=== PATIENT | male | born 1980 | race Caucasian/White ===

== ENCOUNTER → 2019-10-14 09:05 | Outpatient (CLI) | payer OTHER, SELFPAY ==
--- NOTE | 2019-10-14 09:10 | XR_ITS ---
PROCEDURE: XR KNEE RT 4V CLINICAL INDICATION: Rt knee pain Right anterior knee pain COMPARISON: No exams were available for comparison FINDINGS: No fracture or dislocation. No lytic or blastic change. There is normal mineralization. The joint spaces are well-preserved. No significant degenerative/arthritic changes. No erosive changes evident. Other findings:None. IMPRESSION: No acute findings. Dictated by: Joel Christiansen MD 10/14/2019 15:12 Electronically signed by Joel Christiansen MD in [place] 10/14/2019 15:14
== END ==
PROVIDERS: Visit Provider Orthopaedic Surgery
DX: M25.561 Pain in right knee (principal)
CPT/HCPCS: 73564

== ENCOUNTER → 2022-10-11 08:52 | Outpatient (CLI) | payer OTHER, SELFPAY ==
--- NOTE | 2022-10-11 08:59 | US_ITS ---
FINAL REPORT CLINICAL HISTORY: UPPER GASTRIC pain FINDINGS: RIGHT UPPER QUADRANT ULTRASOUND Sonographic images of the right upper quadrant were obtained. The pancreas is partially obscured.The liver has an unremarkable appearance. There is a 3 mm polyp in the gallbladder wall. The common duct is within normal limits measuring 2 mm. Limited images of the right kidney are normal. IMPRESSION: Gallbladder polyp. Reviewed, Interpreted and Dictated by Gabe Bright III, MD Transcribed by Cait Winston Authenticated and [facility]
== END ==
PROVIDERS: PCP Internal Medicine Adolescent Medicine; Visit Provider Nurse Practitioner Family
DX: R10.11 Right upper quadrant pain (principal)
CPT/HCPCS: 76705

== ENCOUNTER 2022-11-05 07:26 | Emergency (ER) | payer OTHER, SELFPAY ==
--- NOTE | 2022-11-05 07:32 | ECG_ITS ---
APPROVED REPORT Exam: Resting ECG HR:61 bpm ECG Measurements Heart Rate [address] 156 P 81 QRSd 98 QRS 82 QT 393 T 81 QTc 395 Conclusion SINUS RHYTHM WITH MARKED SINUS ARRHYTHMIA BORDERLINE ECG UNCONFIRMED REPORT Electronically signed by : Thomas Meneses MD 11/07/2022 20:04:37
[2022-11-05 07:43] VITALS: BP 123/78; PULSE 60; RESP 18; TEMP 36.7; O2SAT 97; BMI 18.8
--- NOTE | 2022-11-05 07:43 | CT_ITS ---
PROCEDURE INFORMATION: Exam: CTA Head With Contrast, Arteriography Exam date and time: 11/05/2022 8:04 AM Age: 42 years old Clinical indication: Dizziness and giddiness and vertigo; Additional info: Central vertigo at rest TECHNIQUE: Imaging protocol: Computed tomographic angiography of the head with contrast. Exam focused on the arteries. 3D rendering (Not supervised by radiologist): MIP and/or 3D reconstructed images were created by the technologist. Radiation optimization: All CT scans at this facility use at least one of these dose optimization techniques: automated exposure control; mA and/or kV adjustment per patient size (includes targeted exams where dose is matched to clinical indication); or iterative reconstruction. Contrast material: ISOVUE 370; Contrast volume: 100 ml; Contrast route: INTRAVENOUS (IV); COMPARISON: CT HEAD/BRAIN WO CON 11/05/2022 8:02 AM FINDINGS: ANTERIOR CIRCULATION: Intracranial internal carotid arteries: Intracranial internal carotid arteries are without acute flow limiting stenosis. Middle cerebral arteries: M1, M2 and their distal visualized branches are without acute flow limiting stenosis. Anterior cerebral arteries: A1, A2 and their distal visualized branches are without acute flow limiting stenosis. Anterior communicating artery is unremarkable. . POSTERIOR CIRCULATION: Vertebral arteries: Intracranial vertebral arteries and their visualized branches are without acute flow limiting stenosis. Basilar artery: The basilar artery and its visualized proximal branches are without acute flow limiting stenosis. Posterior cerebral arteries: P1, P2 and their distal visualized branches are without acute flow limiting stenosis. IMPRESSION: NO acute flow-limiting stenosis or large vessel occlusion of the CENTRAL/major intracranial arteries. COMMENT: Recommend followup with MRI of brain and IAC if persistent/new/worsening symptoms or symptoms unexplained by the current study.
--- NOTE | 2022-11-05 07:43 | CT_ITS ---
PROCEDURE INFORMATION: Exam: CT Head Without Contrast Exam date and time: 11/05/2022 8:02 AM Age: 42 years old Clinical indication: Dizziness; Additional info: Central vertigo at rest TECHNIQUE: Imaging protocol: Computed tomography of the head without contrast. Radiation optimization: All CT scans at this facility use at least one of these dose optimization techniques: automated exposure control; mA and/or kV adjustment per patient size (includes targeted exams where dose is matched to clinical indication); or iterative reconstruction. COMPARISON: No relevant prior studies available. FINDINGS: Brain: Normal appearing brain parenchyma without intraparenchymal hemorrhage and normal zapata-white matter differentiation/no obvious acute ischemic stroke. No intra-or extra-axial fluid collection, no supra-or infratentorial mass, no mass effect or midline shift. Cerebral ventricles: Ventricles, sulci and basal cisterns are normal in size without hydrocephalus. Paranasal sinuses: Mild chronic mucoperiosteal thickening in the visualized paranasal sinuses. Mastoid air cells: No mastoid effusion. Bones/joints: Visualized skull bones are grossly normal. Soft tissues: Focal 1.2 cm osteoma in LEFT posterior ethmoid air cell. IMPRESSION: No evidence of an acute intracranial hemorrhage, mass lesion or obvious acute ischemic infarction.
--- NOTE | 2022-11-05 07:43 | CT_ITS ---
PROCEDURE INFORMATION: Exam: CTA Neck With Contrast Exam date and time: 11/05/2022 8:04 AM Age: 42 years old Clinical indication: Dizziness and giddiness and vertigo; Additional info: Central vertigo at rest TECHNIQUE: Imaging protocol: Computed tomographic angiography of the neck with contrast. 3D rendering (Not supervised by radiologist): MIP and/or 3D reconstructed images were created by the technologist. Radiation optimization: All CT scans at this facility use at least one of these dose optimization techniques: automated exposure control; mA and/or kV adjustment per patient size (includes targeted exams where dose is matched to clinical indication); or iterative reconstruction. Contrast material: ISOVUE 370; Contrast volume: 100 ml; Contrast route: INTRAVENOUS (IV); COMPARISON: CT HEAD/BRAIN WO CON 11/05/2022 8:02 AM FINDINGS: Thoracic Vessels: Visualized aortic arch is unremarkable. No significant narrowing of the origin of the neck vessels. . Common Carotid Arteries: Common carotid arteries are without acute flow limiting stenosis. Cervical Internal Carotid Arteries: No acute flow-limiting stenosis of the cervical internal carotid arteries. No evidence of an aneurysm or a dissection. . Vertebral Arteries: Cervical vertebral arteries are without acute flow limiting stenosis. . Other Structures: Scarring, emphysema and pleural thickening in the lung apices. Calcific LEFT hilar lymph nodes and lung granulomas. IMPRESSION: NO acute flow-limiting stenosis, no occlusion, aneurysm or dissection of the carotid and vertebral arteries in the neck. REFERENCES: NASCET CRITERIA. The degree of stenosis in the cervical segment of the internal carotid artery is based on NASCET criteria. Normal is no stenosis. Mild is less than 50% stenosis. Moderate is 50-69% stenosis. Severe is 70% to 99% stenosis. Total occlusion is no detectable patent lumen.
--- NOTE | 2022-11-05 07:43 | HMH.EDDIZZ ---
Discharge Plan Disposition Patient Disposition: Home, Self-Care Condition: Good Prescriptions Prescriptions: New meclizine 25 mg tablet 25 mg PO DAILY Qty: 30 0RF No Action mupirocin 2 % ointment 1 applic TOPICAL BID 10 Days Qty: 15 0RF sulfamethoxazole-trimethoprim [Bactrim] 400-80 mg tablet 1 tab PO BID 10 Days Qty: 20 0RF prednisone 20 MG tablet 20 mg PO BID 4 Days Qty: 8 0RF Referrals Follow up/Referrals: Thomas Meneses MD [Primary Care Provider] - See instructions Clinical Impressions Clinical Impression: Vertigo Instructions Patient Instructions: Vertigo, Meclizine Print Language Print Language: Bengali Discharge ED Provider: Srinath Mortensen HPI <Faustino Hackett MD - Last Filed: 11/05/22 07:50> General Chief Complaint: Dizziness Stated Complaint: Dizziness,lightheaded,no accident Time Seen by Provider: 11/05/22 07:38 History of Present Illness HPI Narrative: 42-year-old male presents with vertigo upon awakening stating that the room is spinning on a horizontal axis. States that it is occurring at rest and not dependent on position or including standing or leaning. He does not have a headache at this time he has vomited several times and denies double vision. No fevers chills or body aches is otherwise been well with no shortness of breath chest pain or abdominal pain. Over the last several months he has been intermittently worked up for chest pain with GI with a scope determining that he has a hiatal hernia. No medication was taken prior to arrival. Started within an hour prior to arrival here. Related Data Previous Rx's Medication Instructions Recorded mupirocin 2 % topical ointment 1 applic topical BID skin 10/02/18 infection 10 days #15 grams sulfamethoxazole 400 1 tab PO BID skin infection 10 10/02/18 mg-trimethoprim 80 mg tablet days #20 tabs (Bactrim) prednisone 20 mg tablet 20 mg PO BID 4 days #8 tabs 09/19/19 meclizine 25 mg tablet 25 mg PO DAILY #30 tabs 11/05/22 Allergies Allergy/AdvReac Type Severity Reaction Status Date / Time No Known Allergies Allergy Verified 10/14/19 09:34 PFSH <Faustino Hackett MD - Last Filed: 11/05/22 07:50> [facility] Disclaimer: The information contained in this section may have been updated after the patient was seen, as this information can be updated by other users. Social History Smoking Status: Current every day smoker tobacco type: cigarettes packs per day: 1 alcohol intake: never current occupational status: employed Travel in the last 8 weeks: None household members: family housing: house <Faustino Hackett MD - Last Filed: 11/05/22 07:50> ROS Obtained: Yes Systems reviewed as appropriate & no additional complaints except as documented Physical Exam <Faustino Hackett MD - Last Filed: 11/05/22 07:50> General General appearance: alert and in no apparent distress Head Head exam: atraumatic and normocephalic Eye Eye exam: Present PERRL, EOMI and other (With right lateral head turn patient has a very short 2 beat nystagmus to the left) ENT ENT exam: Present mucous membranes moist Neck Neck exam: Present normal inspection and trachea midline Chest Chest inspection: Present normal inspection and symmetric chest wall rise Respiratory Respiratory exam: Present normal lung sounds bilaterally; Absent respiratory distress Cardiovascular Cardiovascular exam: Present regular rate Abdominal Exam Abdominal exam: Present soft; Absent distention or tenderness Extremities Exam Extremities exam: Present normal inspection Back Exam Back exam: Present normal inspection Neurological Exam Neurological exam: Present alert, oriented X3 and CN II-XII intact; Absent motor sensory deficit Psychiatric Psychiatric exam: Present normal affect Skin Skin exam: Present warm, dry and intact Medical Decision Making <Faustino Hackett MD - Last Filed: 11/05/22 07:50> Medical Records Medical records reviewed: Yes
[2022-11-05 07:50] LABS: Basophils # 0.1 K/mm3 (0-0.2); Chloride 104 mmol/L (98-107); Eosinophils # 0.3 K/mm3 (0.0-0.4); Eosinophils % 4.3 % (0.1-12.0); Hematocrit 41.2 % (42.0-52.0); Hemoglobin 14.1 g/dL (14.1-18.0); Lymphocytes # 1.9 K/mm3 (0.7-4.5); Lymphocytes % 25.6 % (10-50); Mean Corpuscular HGB Conc 34.3 g/dL (31.8-35.4); Mean Corpuscular Hemoglobin 29.8 pg (27.0-31.2); Mean Corpuscular Volume 86.8 fl (80-94); Mean Platelet Volume 9.5 fl (7.4-10.4); Monocytes # 0.4 K/mm3 (0.1-1.0); Neutrophils # 4.8 K/mm3 (1.8-7.8); Neutrophils % 64.1 % (37.0-80.0); Platelet Count 187 K/mm3 (142-424); Red Blood Count 4.74 M/mm3 (4.60-6.20); Red Cell Distribution Width 12.6 % (11.5-17.5); White Blood Count 7.5 K/mm3 (4.8-10.8)
[2022-11-05 07:51] LABS: Potassium 3.5 mmoL/L (3.5-5.1); Sodium 140 mmol/L (136-145)
[2022-11-05 07:53] LABS: Blood Urea Nitrogen 14 mg/dl (9-20); Creatinine Clearance Estimated 74 mL/min (50-200); Estimated Glomerular Filt Rate 82 ml/min (>60); GFR (African American) 99 ML/MIN (>60)
[2022-11-05 07:54] LABS: Alanine Aminotransferase 21 U/L (12-78); Albumin Level 4.3 g/dl (3.5-5.0); Albumin/Globulin Ratio 1.6 (1.1-1.8); Alkaline Phosphatase 112 U/L (38-126); Anion Gap 11.5 mEq/L (5-15); Aspartate Amino Transferase 29 U/L (17-59); Bilirubin,Total 0.5 mg/dl (0.2-1.3); Calcium 8.8 mg/dl (8.4-10.2); Carbon Dioxide 28 mmol/L (22.0-30.0); Globulin 2.7 g/dL (1.3-3.2); Glucose 142 mg/dl (74-100)
--- NOTE | 2022-11-05 07:56 | PC.NURSE ---
Radiology taking patient to CT in wheelchair
[2022-11-05 08:11] VITALS: BP 120/74; PULSE 82; RESP 16; O2SAT 100
--- NOTE | 2022-11-05 08:11 | PC.NURSE ---
Patient back from CT
[2022-11-05 08:30] VITALS: BP 118/78; PULSE 60; RESP 16; O2SAT 98
[2022-11-05 09:00] VITALS: BP 119/74; PULSE 62; RESP 17; O2SAT 97
[2022-11-05 10:09] VITALS: BP 120/78; PULSE 61; RESP 18; TEMP 36.7; O2SAT 95
== END 2022-11-05 10:10 | disposition home or self-care (01) ==
PROVIDERS: Student in an Organized Health Care Education/Training Program; Emergency Provider Emergency Medicine; PCP Internal Medicine Adolescent Medicine
DX: R42 Dizziness and giddiness (principal); R11.10 Vomiting, unspecified; H55.00 Unspecified nystagmus; Z79.52 Long term (current) use of systemic steroids
CPT/HCPCS: 99285; 96374; 96375; 96361; 70450; 70496; 70498; 80053; 85025; 93005; Q9967

== ENCOUNTER → 2022-11-09 10:19 | Outpatient (CLI) | payer OTHER, SELFPAY ==
--- NOTE | 2022-11-09 10:23 | NM_ITS ---
FINAL REPORT CLINICAL HISTORY: ABD PAIN no stone per u/s done on 10/11/22 10:35 am 8.37 mci choletec 1.1 mcg of cck injected at 11.35am no pain during cck injection FINDINGS: HEPATOBILIARY SCAN Sequential anterior projection images of the abdomen were obtained after the intravenous injection of 8.37 mCi technetium 99m Choletec. There is normal uptake of radiotracer by the liver. The bile ducts are visualized by 10 minutes. Gallbladder activity is seen by 15 minutes. Bowel activity is noted by 30 minutes. After 1 hour, 1.1 ?g of CCK was injected intravenously for calculation of gallbladder ejection fraction. The gallbladder ejection fraction is 62 %, which is within normal limits. IMPRESSION: No evidence of cystic duct or bile duct obstruction. Normal gallbladder ejection fraction of 62 %. Reviewed, Interpreted and Dictated by Bea Cary MD Transcribed by Manuela Rivera Authenticated and [facility]
--- NOTE | 2022-11-09 10:26 | US_ITS ---
FINAL REPORT TECHNIQUE: Sonographic images of the thyroid were obtained. CLINICAL HISTORY: Feels like lump in throat since June, FINDINGS: THYROID ULTRASOUND The right thyroid gland measures 4.9 by 1.1 x 1.1 cm. The parenchyma shows normal echogenicity. No dominant mass is seen. The left thyroid gland measures 4.7 x 1.1 x 0.9 cm. The parenchyma shows normal echogenicity. No dominant mass is seen. IMPRESSION: Unremarkable thyroid evaluation Reviewed, Interpreted and Dictated by Bea Cary MD Transcribed by Manuela Rivera Authenticated and [facility]
--- NOTE | 2022-11-09 10:36 | HMH.ITSHM ---
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 []MECLIZINE
== END ==
PROVIDERS: PCP Internal Medicine Adolescent Medicine; Visit Provider Nurse Practitioner Family
DX: R10.11 Right upper quadrant pain (principal); R10.13 Epigastric pain; E01.0 Iodine-deficiency related diffuse (endemic) goiter; R07.89 Other chest pain; K44.9 Diaphragmatic hernia without obstruction or gangrene
CPT/HCPCS: 76536; 78227; A9537; J2805

== ENCOUNTER → 2022-12-20 08:40 | Outpatient (CLI) | payer OTHER, SELFPAY ==
--- NOTE | 2022-12-20 08:48 | CT_ITS ---
FINAL REPORT TECHNIQUE: Pre-and postcontrast axial imaging of the abdomen and pelvis was obtained. Oral contrast was given. This study was performed with techniques to keep radiation doses as low as reasonably achievable, (ALARA). Individualized dose reduction technique using automated exposure control or adjustment of mA and/or kV according to the patient's size were employed. CLINICAL HISTORY: EPIGASTRIC PAIN,NAUSEA FINDINGS: The lung bases are clear. The liver is homogeneous. The gallbladder is present. The spleen, adrenal glands, and pancreas are unremarkable. There is no hydronephrosis or solid renal mass. On precontrast imaging, no renal stones are identified. Abdominal GI tract is unremarkable. There is no lymphadenopathy or ascites. The prostate and bladder are unremarkable. The appendix is normal. There is long segment wall thickening of the distal colon consistent with infectious or inflammatory colitis. There is no lymphadenopathy or ascites. No acute osseous abnormalities identified. IMPRESSION: Infectious or inflammatory distal colitis. Reviewed, Interpreted and Dictated by Namrata Ulloa MD Transcribed by Cait Winston Authenticated and [facility]
[2022-12-20 10:41] LABS: Amylase 50 U/L (30-110); Lipase 67 U/L (23-300)
== END ==
PROVIDERS: PCP Internal Medicine Adolescent Medicine; Referring Provider Nurse Practitioner Family; Visit Provider Nurse Practitioner Family
DX: R10.11 Right upper quadrant pain (principal); R10.13 Epigastric pain; R11.0 Nausea; R07.89 Other chest pain; F45.8 Other somatoform disorders; R19.4 Change in bowel habit; K59.00 Constipation, unspecified; K62.5 Hemorrhage of anus and rectum
CPT/HCPCS: 36415; 74178; 82150; 83690; Q9967

== ENCOUNTER → 2023-03-15 15:14 | Outpatient (CLI) | payer OTHER, SELFPAY | PROVIDERS: PCP Internal Medicine Adolescent Medicine; Visit Provider Nurse Practitioner Family | DX: R06.09 Other forms of dyspnea (principal); R00.2 Palpitations; R07.89 Other chest pain; R42 Dizziness and giddiness | CPT/HCPCS: 93270 ==

== ENCOUNTER → 2023-03-27 14:23 | Outpatient (CLI) | payer OTHER, SELFPAY ==
--- NOTE | 2023-03-27 | CA_ITS ---
APPROVED REPORT Exam: Exercise Treadmill Technologist: Michela Bauer, Ht: 5 ft 7 in Wt: 120 lbs BSA: 1.63 m2 HR: 77 bpm BP: 115/75 mmHg Medical History Allergies: No known drug allergies Cardiac Risk Factors: FHX of CAD Stress Test Details Test: Exercise stress testing was performed using a Modified Timmy protocol. HR Resting HR: 86 bpm Max Heart Rate (APMHR): 177 bpm Max HR Achieved: 150 bpm Target HR (85% APMHR): 150 bpm % of APMHR: 85 Recovery HR: 79 bpm BP Resting BP: 120/79 mmHg Max BP: 142/80 mmHg Recovery BP: 123.0/79.0 mmHg BP response to stress: Normal blood pressure response to stress. ECG Resting ECG: NSR, Possible old inferior NE Stress ECG: Sinus tachycardia ST Change: No change Arrhythmia: None Recovery ECG: NSR, unchanged from baseline Clinical Exercise duration: 10:28 min Highest Stage Achieved: Exercise capacity: 12.8 METs Overall Exercise Capacity for Age: Good Stress ECG Conclusion EXERCISE STRESS TEST WAS STOPPED DUE TO GENERALIZED FATIGUE BASELINE ECG DEMONSTRATES NORMAL SINUS RHYTHM WITH POSSIBLE OLD INFERIOR NE. AT PEAK STRESS, THERE WERE NO ST-T WAVE CHANGES CONCLUSION: GOOD EXERCISE CAPACITY FOR AGE AND SEX. NORMAL HR AND BP RESPONSE WITH STRESS. STRESS ECG DEMONSTRATES NO ISCHEMIC FINDINGS. Test Summary REST . . . . . . . Standing REST . . . . . . . Sitting REST 06:26 0.0 0.0 86 . 120/ 79 . . Stage 1 01:00 10.0 1.7 96 . . . . Stage 1 02:00 10.0 1.7 95 . . . . Stage 1 03:00 10.0 1.7 97 . 120/ 65 . . Stage 2 01:00 12.0 2.5 101 . . . . Stage 2 02:00 12.0 2.5 103 . . . . Stage 2 03:00 12.0 2.5 110 . 130/ 78 . . Stage 3 01:00 14.0 3.4 121 . . . . Stage 3 02:00 14.0 3.4 119 . 142/ 80 . . Stage 3 03:00 14.0 3.4 128 . 142/ 80 . . Stage 4 01:00 16.0 4.2 145 . . . . Stage 4 01:28 16.0 4.2 149 . . . Stop exercise at 10:28 RECOVERY 01:00 0.0 0.0 112 . 135/ 70 . . RECOVERY 02:00 0.0 0.0 101 . 135/ 70 . . RECOVERY 03:00 0.0 0.0 87 . 135/ 70 . . RECOVERY 04:00 0.0 0.0 87 . 137/ 77 . . RECOVERY 04:39 0.0 0.0 87 . 123/ 79 . . Electronically signed by : Olga Sexton, 03/27/2023 19:12:21
== END ==
LOC: RT 14:24
PROVIDERS: PCP Internal Medicine Adolescent Medicine; Visit Provider Nurse Practitioner Family
DX: R06.09 Other forms of dyspnea (principal); R07.89 Other chest pain; R00.2 Palpitations; R42 Dizziness and giddiness
CPT/HCPCS: 93017; 93306

== ENCOUNTER 2023-04-26 08:43 | Day surgery (SDC) | payer OTHER, SELFPAY ==
[2023-04-26] VITALS (13 sets, daily range): BP systolic 80–112; BP diastolic 49–71; PULSE 45–77; RESP 17–18; O2SAT 95–100; BMI 18.6
--- NOTE | 2023-04-26 07:12 | IR_ITS ---
APPROVED REPORT Patient Location: Outpatient Field Nurse: JEREMIE Oropeza RT (R) PROCEDURES Left heart catheterization Left ventriculogram Selective coronary angiogram INDICATION Cardiomyopathy ejection fraction 40%, Unable to complete exercise stress test Informed consent was obtained prior to the procedure. COMPLICATIONS None Estimated Blood Loss: Less than 10 mls TECHNIQUE One percent lidocaine was used to anesthetize the right groin. The right femoral artery was accessed via the Seldinger technique. A 4-Tuvaluan sheath was placed in the right femoral artery. The JL-4 and JR-4 catheter was also used to perform left heart catheterization left ventriculogram and selective coronary angiogram. At the end of the procedure the patient was transferred to the post-op holding area in stable condition for arterial sheath removal. ANGIOGRAPHIC RESULTS The left main artery Normal The left anterior descending artery Normal The circumflex artery Normal The right coronary artery Dominant normal The ROGERS ventriculogram reveals Slightly dilated globally hypokinetic ejection fraction 40% The left ventricular end-diastolic pressure 20 mmHg IMPRESSION Normal coronary arteries Unexplained and nonischemic cardiomyopathy at 40% Mildly elevated LVEDP PLAN 1. Standard therapy for systolic congestive heart failure 2. Recommend cardiac MRI to better evaluate etiology of cardiomyopathy Electronically signed by : Davis Jonas MD 04/26/2023 11:10:59
[2023-04-26 09:30] LABS: Basophils % 0.5 % (0.1-2.0); Eosinophils # 0.3 K/mm3 (0.0-0.4); Eosinophils % 3.6 % (0.1-12.0); Hematocrit 45.4 % (42.0-52.0); Hemoglobin 15.5 g/dL (14.1-18.0); Lymphocytes % 28.3 % (10-50); Mean Corpuscular HGB Conc 34.1 g/dL (31.8-35.4); Mean Corpuscular Hemoglobin 29.9 pg (27.0-31.2); Mean Corpuscular Volume 87.5 fl (80-94); Mean Platelet Volume 9.2 fl (7.4-10.4); Monocytes # 0.3 K/mm3 (0.1-1.0); Monocytes % 4.5 % (1.7-9.3); Neutrophils # 4.4 K/mm3 (1.8-7.8); Neutrophils % 63.1 % (37.0-80.0); Platelet Count 181 K/mm3 (142-424); Red Blood Count 5.18 M/mm3 (4.60-6.20); Red Cell Distribution Width 12.5 % (11.5-17.5)
[2023-04-26 09:34] LABS: Chloride 102 mmol/L (98-107); Potassium 4.5 mmoL/L (3.5-5.1); Sodium 140 mmol/L (136-145)
[2023-04-26 09:37] LABS: Anion Gap 14.5 mEq/L (5-15); Blood Urea Nitrogen 10 mg/dl (9-20); Carbon Dioxide 28 mmol/L (22.0-30.0); Creatinine Clearance Estimated 91 mL/min (50-200); Estimated Glomerular Filt Rate 106 ml/min (>60); GFR (African American) 128 ML/MIN (>60); Glucose 100 mg/dl (74-100)
[2023-04-26 09:38] LABS: Calcium 9.6 mg/dl (8.4-10.2)
== END 2023-04-26 14:26 | disposition home or self-care (01) ==
PROVIDERS: PCP Internal Medicine Adolescent Medicine; Visit Provider Internal Medicine
DX: I42.9 Cardiomyopathy, unspecified (principal); I20.8 Other forms of angina pectoris; R00.2 Palpitations; R06.09 Other forms of dyspnea; F17.210 Nicotine dependence, cigarettes, uncomplicated; Z82.49 Family history of ischemic heart disease and other diseases of the circulatory system
CPT/HCPCS: 80048; 85025; 93458; 99152; C1725; C1769; J1644; Q9967

== ENCOUNTER → 2023-05-01 14:45 | Outpatient (CLI) | payer OTHER, SELFPAY ==
--- NOTE | 2023-05-01 14:55 | CA_ITS ---
FINAL REPORT CLINICAL HISTORY: Patient had a heart cath with right wrist access 04/26/23. Patient states his arm is bruised and hurting to touch. No palpable knot. Smoker, HTN COMPARISON: None FINDINGS: Spectral and Doppler waveform evaluations of the right wrist was performed. Spectral analysis was performed. Radial artery is patent without evidence of pseudoaneurysm. IMPRESSION: No evidence of pseudoaneurysm. Reviewed, Interpreted and Dictated by Gabe Bright III, MD Transcribed by Bobbi Gresham Authenticated and [facility]
== END ==
LOC: RT 14:46
PROVIDERS: PCP Internal Medicine Adolescent Medicine; Visit Provider Nurse Practitioner Family
DX: M79.601 Pain in right arm (principal); T80.89XA Other complications following infusion, transfusion and therapeutic injection, initial encounter; Z98.890 Other specified postprocedural states
CPT/HCPCS: 93931

== ENCOUNTER → 2023-05-12 12:13 | Outpatient (CLI) | payer OTHER, SELFPAY ==
[2023-05-12 13:17] LABS: Anion Gap 11.2 mEq/L (5-15); Blood Urea Nitrogen 14 mg/dl (9-20); Carbon Dioxide 28 mmol/L (22.0-30.0); Chloride 105 mmol/L (98-107); Estimated Glomerular Filt Rate 92 ml/min (>60); GFR (African American) 111 ML/MIN (>60); Glucose 84 mg/dl (74-100); Potassium 4.2 mmoL/L (3.5-5.1); Sodium 140 mmol/L (136-145)
== END ==
LOC: LAB 12:13
PROVIDERS: PCP Internal Medicine Adolescent Medicine; Visit Provider Nurse Practitioner Family
DX: I20.8 Other forms of angina pectoris (principal); I42.8 Other cardiomyopathies; R00.2 Palpitations; R06.00 Dyspnea, unspecified; R06.01 Orthopnea; R42 Dizziness and giddiness; Z82.49 Family history of ischemic heart disease and other diseases of the circulatory system
CPT/HCPCS: 36415; 80048

== ENCOUNTER → 2023-05-17 10:04 | Outpatient (CLI) | payer OTHER, SELFPAY | PROVIDERS: PCP Internal Medicine Adolescent Medicine; Visit Provider Physician Assistant | DX: R06.00 Dyspnea, unspecified (principal); R06.01 Orthopnea; R07.89 Other chest pain; I42.8 Other cardiomyopathies; R00.2 Palpitations; R42 Dizziness and giddiness | CPT/HCPCS: 93270 ==

== ENCOUNTER → 2023-07-06 13:11 | Outpatient (CLI) | payer OTHER, SELFPAY ==
[2023-07-12 16:13] LABS: Calprotectin, Fecal 6 ug/g (0-120)
[2023-07-13 17:11] LABS: Pancreatic Elastase, Fecal 84 (>200)
== END ==
PROVIDERS: PCP Internal Medicine Adolescent Medicine; Visit Provider Nurse Practitioner
DX: R10.10 Upper abdominal pain, unspecified (principal); K52.9 Noninfective gastroenteritis and colitis, unspecified; R11.0 Nausea
CPT/HCPCS: 82656; 83993

== ENCOUNTER → 2023-07-24 15:15 | Outpatient (CLI) | payer OTHER, SELFPAY ==
--- NOTE | 2023-07-24 15:22 | XR_ITS ---
FINAL REPORT CLINICAL HISTORY: neck pain, headaches for over a year. back and neck injury at age 24 from lifting heavy objects-no surgery FINDINGS: 7 views of the cervical spine were obtained. There is no acute fracture or subluxation. Disc spaces are preserved. Neuroforamen are adequately patent. No instability is seen with flexion or extension. Precervical soft tissues are without acute abnormality. There is no evidence of facet lock. IMPRESSION: No acute bony abnormality, significant neuroforaminal narrowing or instability with flexion/extension. Reviewed, Interpreted and Dictated by Man Curran MD Transcribed by Karen Reed Authenticated and [facility]
[2023-07-24 17:24] LABS: Basophils # 0.1 K/mm3 (0-0.2); Basophils % 0.6 % (0.1-2.0); Eosinophils # 0.3 K/mm3 (0.0-0.4); Eosinophils % 3.3 % (0.1-12.0); Hematocrit 44.4 % (42.0-52.0); Hemoglobin 14.9 g/dL (14.1-18.0); Lymphocytes # 2.4 K/mm3 (0.7-4.5); Lymphocytes % 29.4 % (10-50); Mean Corpuscular HGB Conc 33.6 g/dL (31.8-35.4); Mean Corpuscular Hemoglobin 30.3 pg (27.0-31.2); Mean Corpuscular Volume 90.4 fl (80-94); Mean Platelet Volume 10.2 fl (7.4-10.4); Monocytes # 0.4 K/mm3 (0.1-1.0); Monocytes % 4.8 % (1.7-9.3); Neutrophils % 61.8 % (37.0-80.0); Platelet Count 175 K/mm3 (142-424); Red Blood Count 4.92 M/mm3 (4.60-6.20); Red Cell Distribution Width 12.8 % (11.5-17.5); White Blood Count 8.1 K/mm3 (4.8-10.8)
[2023-07-24 18:12] LABS: Alanine Aminotransferase 19 U/L (12-78); Albumin Level 4.6 g/dl (3.5-5.0); Albumin/Globulin Ratio 1.5 (1.1-1.8); Alkaline Phosphatase 95 U/L (38-126); Anion Gap 14.3 mEq/L (5-15); Aspartate Amino Transferase 28 U/L (17-59); Bilirubin,Total 0.3 mg/dl (0.2-1.3); Blood Urea Nitrogen 10 mg/dl (9-20); Calcium 9.5 mg/dl (8.4-10.2); Carbon Dioxide 30 mmol/L (22.0-30.0); Chloride 101 mmol/L (98-107); Estimated Glomerular Filt Rate 106 ml/min (>60); GFR (African American) 128 ML/MIN (>60); Glucose 73 mg/dl (74-100); Potassium 4.3 mmoL/L (3.5-5.1); Sodium 141 mmol/L (136-145); Total Protein,Serum 7.6 g/dl (6.3-8.2)
[2023-07-24 18:43] LABS: Thyroid Stimulating Hormone 1.43 uIU/mL (0.465-4.68)
[2023-07-24 19:18] LABS: Folate 4.93 ng/mL; Vitamin B12 356 pg/mL (239-931)
== END ==
PROVIDERS: PCP Internal Medicine Adolescent Medicine; Visit Provider Nurse Practitioner Family
DX: G47.8 Other sleep disorders (principal); M54.2 Cervicalgia; G89.29 Other chronic pain; R51.9 Headache, unspecified; I42.9 Cardiomyopathy, unspecified; R00.1 Bradycardia, unspecified; R53.83 Other fatigue
CPT/HCPCS: 36415; 72052; 80053; 82607; 82746; 84443; 85025

== ENCOUNTER → 2023-08-04 07:23 | Outpatient (CLI) | payer OTHER, SELFPAY ==
--- NOTE | 2023-08-04 07:23 | MR_ITS ---
FINAL REPORT TECHNIQUE: Multiplanar and multisequence imaging of the brain was obtained without contrast. CLINICAL HISTORY: worsening headaches. DIZZINESS AND BLURRED VISION FINDINGS: The gyri and sulci are within normal limits for age. There is no mass effect or midline shift. The ventricles are symmetric in size and configuration without hydrocephalus. There are no areas of abnormal signal intensity. The cerebellum and brainstem have a normal appearance. There are no areas of restricted diffusion on diffusion weighted images to suggest acute infarct. There is mild mucoperiosteal thickening in the sphenoid sinuses. IMPRESSION: No acute intracranial abnormality. Reviewed, Interpreted and Dictated by Namrata Ulloa MD Transcribed by Cait Winston Authenticated and [facility]
== END ==
PROVIDERS: PCP Internal Medicine Adolescent Medicine; Visit Provider Nurse Practitioner Family
DX: G47.8 Other sleep disorders (principal); G89.29 Other chronic pain; I42.9 Cardiomyopathy, unspecified; M54.2 Cervicalgia; R00.1 Bradycardia, unspecified; R51.9 Headache, unspecified; R53.83 Other fatigue
CPT/HCPCS: 70551

== ENCOUNTER 2023-08-08 06:38 | Day surgery (SDC) | payer OTHER, SELFPAY ==
[2023-08-07 09:55] VITALS: BMI 18.8
[2023-08-08 07:04] VITALS: BP 111/44; PULSE 64; RESP 18; TEMP 36.2; O2SAT 99
[2023-08-08 07:28] VITALS: O2SAT 100
--- NOTE | 2023-08-08 08:09 | HMH.SCOPE ---
Procedure: Date: 08/08/23 Patient Date of :: 1980 Procedure Performed:: Esophagogastroduodenoscopy with biopsy Colonoscopy with polypectomy Indications:: Dysphagia History of colon polyps Note: Colonoscopy performed by Dr. Miguel Patel in February 2023 revealed sigmoid polyp with high-grade dysplasia. Stalk of polyp reportedly benign. Performing Provider:: Britton Thurman MD Referring Provider:: Lynda Arellano APRN Sedation:: Monitored anesthesia care Procedure:: After informed consent was obtained the patient was taken to the endoscopy suite. Sedation ensued after the patient was transferred to the left lateral decubitus position. Pulse, blood pressure, and oxygen saturation were monitored throughout the procedure. The endoscope was advanced beyond the duodenal bulb. Retroflexion within the gastric lumen was accomplished. The gastroscope was carefully removed. Digital rectal exam revealed no significant abnormality. The colonoscope was placed in position. The entire colon was evaluated. The colonoscope was carefully removed and the patient was transferred to recovery in stable condition. Please see findings and specimens below for detail. Findings:: Gastroesophageal junction at 40 cm Very mild/early Schatzki ring Small sliding hiatal hernia Gastric inlet at 20 cm (no ulceration or inflammatory changes noted) Bowel preparation relatively fair Hemorrhoidal tags Complex lobulated sessile polyp at 35 cm Specimens:: Antral biopsy Complex lobulated sessile polyp at 35 cm (hot snare) Recommendations:: Proton pump inhibition Barium swallow in near future Follow-up pathology Timing of repeat colonoscopy is pending pathology but likely be around 1-2 years secondary to history of complex polyps Continue gastroenterology follow-up secondary to pancreatic insufficiency, abdominal pain, etc. Complications:: No immediate Estimated blood obtained (mL): 1 Colonoscopy Component Colonoscopy Component Was a colonoscopy performed during today's procedure?: Yes Recommended follow up colonoscopy of at least 10 years?: No If no, follow up colonoscopy recommended in ___ years?: (See above) Reason for not recommending >/= 10 yr follow-up interval?: (See above)
[2023-08-08 08:10] VITALS: BP 91/60; PULSE 65; RESP 12; TEMP 36.1; O2SAT 98
[2023-08-08 08:20] VITALS: BP 98/58; PULSE 68; RESP 14; O2SAT 98
[2023-08-08 08:30] VITALS: BP 106/66; PULSE 66; RESP 16; O2SAT 99
--- NOTE | 2023-08-08 08:32 | EXP.ANES.CKL ---
[facility] Disclaimer: The information contained in this section may have been updated after the patient was seen, as this information can be updated by other users. Medical History Bradycardia Chest pain Fatigue Hemorrhoid Hiatal hernia History of COVID-19 History of gastroesophageal reflux (GERD) Hx of pancreatitis Migraine Neck pain Non-cardiac chest pain Non-restorative sleep Nonischemic cardiomyopathy Systolic heart failure Worsening headaches Surgical History History of cardiac cath Hx of colonoscopy Family History Other Cancer Diverticulitis Heart disease Social History Smoking Status: Current every day smoker tobacco type: cigarettes packs per day: 1 alcohol intake: never substance use type: denies use current occupational status: employed Travel in the last 8 weeks: None housing: house marital status: [facility] Anesthesia Checklist Patient Identification Patient Identification: Arm Band and Family Structural Data Admitted From: Home Planned Operative Procedure/s: EGD and Colonoscopy Consent for Planned Operative Procedure(s) Verified: Yes Verified Documents: Surgical Consent and History and Physical NPO Status Verified Time NPO: 00:00 Additional verifications Patient : No Anesthesia Reactions: No Hx Blood Transfusions: No Blood Transfusion Reaction: No Cephalosporin Allergy: No Previous Colonoscopy: Yes Airway Assessment Mallampati Score:: Class II C-Spine Mobility Assessed: Yes TMJ Mobility Assessed: Yes Dentition: Poor Dentition Neurological Assessment Level of Consciousness: Awake, Alert, Appropriate and Follows Commands Hx Seizures: No Numbness or tingling in extremities: No Anesthesia Plan Anesthesia Risk discussed: Yes ASA Class: II Anesthesia Type: MAC
[2023-08-08 08:40] VITALS: BP 106/74; PULSE 59; RESP 14; O2SAT 100
== END 2023-08-08 08:50 | disposition home or self-care (01) ==
PROVIDERS: PCP Internal Medicine Adolescent Medicine; Visit Provider Surgery
PROC: 0DJ08ZZ Inspection of Upper Intestinal Tract, Via Natural or Artificial Opening Endoscopic (ICD-10-PCS; CPT 43235; principal; 2023-08-08 07:30)
DX: Z12.11 Encounter for screening for malignant neoplasm of colon (principal); R13.10 Dysphagia, unspecified; K22.2 Esophageal obstruction; K44.9 Diaphragmatic hernia without obstruction or gangrene; D12.5 Benign neoplasm of sigmoid colon
CPT/HCPCS: 45385; 43239; J2704

== ENCOUNTER → 2023-08-23 09:44 | Outpatient (CLI) | payer OTHER, SELFPAY ==
--- NOTE | 2023-08-23 09:44 | FL_ITS ---
FINAL REPORT CLINICAL HISTORY: Dysphagia FT 53 sec DAP 1268.63 FINDINGS: BARIUM SWALLOW HISTORY: Dysphagia. TECHNIQUE: The patient ingested barium contrast. Spot and overhead films were performed. A total of 51 images were saved. FINDINGS: There is a small sliding-type hiatal hernia with a ring. There is no gastroesophageal reflux demonstrated. Motility appears normal. No changes of esophagitis are evident. 13 mm barium tablet passes easily through the esoophagus and into the stomach. FLUOROSCOPY TIME: 53 seconds Radiation exposure in Total DAP: 1268.63 uGym2 IMPRESSION: Small sliding-type hiatal hernia. Otherwise, unremarkable esophagram. Reviewed, Interpreted and Dictated by Gabe Bright III, MD Transcribed by Radha Peterson PA-C Authenticated and [facility]
== END ==
PROVIDERS: PCP Internal Medicine Adolescent Medicine; Visit Provider Surgery
DX: R13.10 Dysphagia, unspecified (principal)
CPT/HCPCS: 74220

== ENCOUNTER → 2023-10-04 10:37 | Outpatient (CLI) | payer OTHER, SELFPAY ==
--- NOTE | 2023-10-04 10:38 | FL_ITS ---
FINAL REPORT CLINICAL HISTORY: dysphagia FINDINGS: MODIFIED BARIUM SWALLOW HISTORY: Dysphagia. FINDINGS: Fluoroscopy was provided for the speech pathologist to evaluate the swallowing mechanism. The patient was given several different consistencies of barium while the swallow was visualized fluoroscopically. The report of the speech pathologist should be consulted prior to making dietary decisions. IMPRESSION: Modified barium swallow under fluoroscopic guidance. Please see speech pathologist's report for further details and dietary recommendations. Fluoroscopy time was 2 minutes, 11 seconds Radiation exposure in Reference air Kerma: 7 mGy A total of 12 cine runs were saved. Reviewed, Interpreted and Dictated by Man Curran MD Transcribed by Radha Peterson PA-C Authenticated and . [facility]
--- NOTE | 2023-10-04 11:23 | HMH.SLMBS2 ---
Speech & Language Evaluation Speech/Language Mod Barium Swallow Start: 10/04/23 11:12 Freq: once Status: Complete Protocol: Document 10/04/23 11:12 YOVANY (Rec: 10/04/23 11:23 YOVANY [id number]) General Information General Current Food Consistancy Regular,Thin Liquids Dentition Good Dentition Oxygen Status Room Air Patient Orientation Person,Place,Time,Situation Ability to Follow Directions Excellent Communication Ability No Impairment MBS Recommendations Diet Dietary Recommendations Regular,Thin Liquids Treatment/Strategies Strategy/Precaution Recommend Sitting Upright (90 deg), Double Swallow,No Straw,Small Bites and Sips,Alternate Liquids/Solids Referrals/Other Recommended Referrals GI Consult Other Recommendations Pt reports complaints of globus sensation following completion of MBSS, no retrograde flow observed with trace amounts of residual in vallecular space cleared with double, effortful swallow. Mod Barium Swallow Impressions Summary and Impressions Oral Phase Impression Minimal Impairment Oral Phase Summary Minimal impairment of the oral preparatory and oral transit phases of the swallow. Mastication WFL, all bolus was manipulated and transferred adequately to oropharyngeal phase of the swallow with exception of barium tablet. Pt exhibited difficulty transferring bolus with use of tongue and required multiple sips of thin liquids to complete. Pharyngeal Phase Impression Mild Impairment Pharyngeal Phase Summary Minimal to Mild impairment of the pharyngeal phase of the swallow. Peter residuals observed with thin liquids using straw and large bite of pudding observed in the vallecular space that was cleared with a double effortful swallow. A/P spills and trace BOT residual observed with large bite of pudding, straw sips of thins,
== END ==
PROVIDERS: PCP Internal Medicine Adolescent Medicine; Visit Provider Surgery
DX: R13.10 Dysphagia, unspecified (principal)
CPT/HCPCS: 70371; 92611

== ENCOUNTER → 2023-11-01 10:40 | Outpatient (CLI) | payer OTHER, SELFPAY | LOC: SL 10:42 | PROVIDERS: PCP Internal Medicine Adolescent Medicine; Visit Provider Nurse Practitioner Family | DX: G47.8 Other sleep disorders (principal); R53.83 Other fatigue; R51.9 Headache, unspecified; G89.29 Other chronic pain; R06.83 Snoring | CPT/HCPCS: G0399 ==

== ENCOUNTER 2023-11-09 07:16 | Outpatient (CLI) | payer OTHER, SELFPAY ==
--- NOTE | 2023-11-09 07:16 | CT_ITS ---
FINAL REPORT TECHNIQUE: Thin section axial CT images of the facial bones and sinuses were obtained without contrast. Coronal reformatted images were also obtained.This study was performed with techniques to keep radiation doses as low as reasonably achievable, (ALARA). Individualized dose reduction techniques using automated exposure control or adjustment of mA and/or kV according to the patient''''s size were employed. CLINICAL HISTORY: sinusitis FINDINGS: There is mild mucosal thickening of the left maxillary sinus. 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 No fluid levels are identified. There is nasal septal deviation with a small left-sided nasal septal spur. No fracture or acute bony abnormality is identified. IMPRESSION: Sinusitis as above. Reviewed, Interpreted and Dictated by Gabe Bright III, MD Transcribed by Cait Winston Authenticated and [facility]
== END 2023-11-09 23:59 ==
LOC: RAD 07:16
PROVIDERS: PCP Internal Medicine Adolescent Medicine; Visit Provider Nurse Practitioner
DX: J32.9 Chronic sinusitis, unspecified (principal)
CPT/HCPCS: 70486

== ENCOUNTER 2023-11-16 15:05 | Emergency (ER) | payer OTHER, SELFPAY ==
[2023-11-16 16:00] VITALS: BP 120/63; PULSE 63; RESP 20; TEMP 37.2; O2SAT 98; BMI 17.8
--- NOTE | 2023-11-16 16:24 | ED_ITS ---
Discharge Plan Disposition Patient Disposition: Home, Self-Care Condition: Good Prescriptions Prescriptions: No Action metoprolol succinate 25 mg tablet extended release 24 hr 12.5 mg PO QDAY Qty: 90 3RF Entresto 24-26 mg tablet 1 tab PO BID Qty: 60 3RF azelastine 137 mcg (0.1 %) aerosol,spray 1 spray intranasal BID Qty: 30 3RF Rx Instructions: administer into each nostril levocetirizine [Xyzal] 5 mg tablet 5 mg PO DAILY Qty: 30 3RF ondansetron HCl 4 mg tablet 4 mg PO Q8H meclizine [Dramamine (meclizine)] 25 mg tablet 25 mg PO DAILY PRN tizanidine 2 mg tablet 2 mg PO HS Qty: 60 1RF Rx Instructions: Initially one tablet (2mg) by mouth at bedtime. Monitor BP and if no intolerance or low blood pressures but ongoing headaches, may increase to two tablets (4mg). Referrals Follow up/Referrals: Thomas Meneses MD [Primary Care Provider] - See instructions Activity Restrictions/Add. Instructions Additional Instructions/Restrictions: If you are having side effects from the Tamiflu recommend stopping the tamiflu and taking Over the counter cold medications The flu will make you feel achy, tired, feverish, chills, nasal congestion, cough, headache ETC Follow up with your Family Doctor if needed Straight to ER if any life threatening symptoms Clinical Impressions Clinical Impression: Side effect of medication Instructions Patient Instructions: Influenza Discharge ED Provider: Teri Ryan [facility] HPI General Stated complaint: soa Mode of Arrival: Ambulatory Source of Information: Patient Limitations: No Limitations Time Seen by Provider: 11/16/23 16:25 Description of Symptoms (Recalled from Triage Doc. by RN): PATIENT REPORTS HE WAS SEEN AT PCP YESTERDAY AND DIAGNOSED WITH FLU AND WAS GIVEN TAMIFLU. TODAY AFTER LUNCH HE REPORTS FEELING DIZZY, TINGLING, LIGHT-HEADED, SOA, AND FEELING LIKE HE WAS GOING TO PASS OUT HEENT Symptoms (Recalled from RN notes): No Resp Symptoms (Recalled from RN notes): Yes Skin Symptoms (Recalled from RN notes): No MS Symptoms (Recalled from RN notes): No Functional Status (Recalled from RN notes): WNL History of Present Illness Provider Complaint: Patient states that he was seen by his PCP yesterday and dx with the flu States that he thinks he may have had a reaction to the tamiflu States that earlier today after lunch he felt hot like he may have had a fever, felt a little dizzy, coughing and upset stomach which made his anxiety act up and made him feel SOA like he was going to pass out States that he sit down and felt better worried it may have been the tamiflu making him feel that way or it is the flu Related Data Home Medications Medication Instructions Recorded Confirmed meclizine 25 mg tablet (Dramamine 25 mg PO DAILY PRN 08/24/23 11/15/23 (meclizine)) ondansetron HCl 4 mg tablet 4 mg PO Q8H 08/24/23 11/15/23 Previous Rx's Medication Instructions Recorded metoprolol succinate 25 mg 12.5 mg PO QDAY #90 tabs 10/04/23 tablet,extended release 24 hr sacubitril 24 mg-valsartan 26 mg 1 tab PO BID #60 tabs 10/04/23 tablet (Entresto) tizanidine 2 mg tablet 2 mg PO HS #60 tabs 10/17/23 azelastine 137 mcg (0.1 %) nasal 1 spray intranasal BID #30 mL 10/23/23 spray aerosol levocetirizine 5 mg tablet (Xyzal) 5 mg PO DAILY #30 tabs 10/23/23 Allergies Allergy/AdvReac Type Severity Reaction Status Date / Time No Known Allergies Allergy Verified 11/15/23 14:24 Worker's Comp Is this a Worker's Comp case?: No [facility] Disclaimer: The information contained in this section may have been updated after the patient was seen, as this information can be updated by other users. Medical History (Updated 11/16/23 @ 16:41 by Teri Ryan APRN) Bradycardia Chest pain Chronic sinusitis Epistaxis Fatigue Globus sensation Hemorrhoid Hiatal hernia History of COVID-19 History of gastroesophageal reflux (GERD) Hx of pancreatitis Migraine Neck pain Non-cardiac chest pain Non-restorative sleep Nonischemic cardiomyopathy Sinusitis Systolic heart failure Worsening headaches Surgical History History of cardiac cath History of esophagogastroduodenoscopy (EGD) Hx of colonoscopy Family History Other Cancer Diverticulitis Heart disease Social History Smoking Status: Current every day smoker tobacco type: cigarettes packs per day: 1 alcohol intake: never substance use type: denies use current occupational status: employed Travel in the last 8 weeks: None housing: house marital status: ROS Obtained: Yes All systems reviewed & no additional complaints except as documented and Yes Systems reviewed as appropriate & no additional complaints except as documented Constitutional Constitutional: Reports system reviewed and no additional complaints, except as documented, Reports as per HPI, Reports body ache, Reports chills, Reports fatigue, Reports fever(s) and Reports poor appetite ENT Ears, Nose, Mouth, and Throat: Reports system reviewed and no additional complaints, except as documented, Reports as per HPI and Reports dizziness Cardiovascular Cardiovascular: Reports system reviewed and no additional complaints, except as documented and Reports as per HPI Respiratory Respiratory: Reports system reviewed and no additional complaints, except as documented, Reports as per HPI, Reports shortness of breath (after his anxiety started) and Reports cough Gastrointestinal Gastrointestingal: Reports system reviewed and no additional complaints, except as documented and as per HPI Genitourinary Male Genitourinary: Reports system reviewed and no additional complaints, except as documented and Reports as per HPI Neurologic Neurologic: Reports dizziness Endocrine Endocrine: Reports fatigue Physical Exam General General appearance: alert and in no apparent distress Eye Eye exam: Present normal appearance, PERRL and EOMI ENT ENT exam: Present mucous membranes moist Chest Chest inspection: Present normal inspection and symmetric chest wall rise Respiratory Respiratory exam: Present normal lung sounds bilaterally; Absent respiratory distress or wheezes Cardiovascular Cardiovascular exam: Present regular rate, normal rhythm and normal heart sounds Abdominal Exam Abdominal exam: Present soft and normal bowel sounds; Absent distention or tenderness Neurological Exam Neurological exam: Present alert, oriented X3 and normal gait Medical Decision Making Aneudy Inquiry Pt receiving controlled substance: No Aneudy was queried for this patient: No Vital Signs: 11/16/23 16:00 Temperature 99.0 F Temperature Source Oral Pulse Rate [Right Brachial] 63 Respiratory Rate 20 Blood Pressure [Right Arm] 120/63 Blood Pressure Mean [Right Arm] 82 Blood Pressure Source [Right Arm] Automatic Cuff Blood Pressure Position [Right Arm] Sitting 02 Sat by Pulse Oximetry 98 Oxygen Delivery Method Room Air Medical Decision Narrative: Spoke with patient and informed him if he is having side effects from the Tamiflu stop the tamiflu and the side effects should stop however he does have the flu and fever, chills and body aches are all symptoms of the flu could possibly be flu symptoms Also discussed CXR for SOA and he declined states that he is not having that now just earlier when he was having anxiety
[2023-11-16 16:37] VITALS: BP 120/63; PULSE 63; RESP 20; TEMP 37.2; O2SAT 98
== END 2023-11-16 16:46 | disposition home or self-care (01) ==
PROVIDERS: Emergency Provider Nurse Practitioner; PCP Internal Medicine Adolescent Medicine
DX: R42 Dizziness and giddiness (principal); R06.02 Shortness of breath; R20.2 Paresthesia of skin; T37.5X5A Adverse effect of antiviral drugs, initial encounter; I50.20 Unspecified systolic (congestive) heart failure; I42.9 Cardiomyopathy, unspecified; F17.210 Nicotine dependence, cigarettes, uncomplicated
CPT/HCPCS: 99204; 99212; G0463

== ENCOUNTER 2023-12-17 22:58 | Emergency (ER) | payer OTHER, SELFPAY ==
[2023-12-17 22:59] VITALS: BP 118/93; PULSE 78; RESP 18; TEMP 36.8; O2SAT 99; BMI 19.3
--- NOTE | 2023-12-17 23:06 | HMH.EDGENADL ---
Discharge Plan Disposition Patient Disposition: Home, Self-Care Prescriptions Prescriptions: New amoxicillin-pot clavulanate 875-125 mg tablet 1 tab PO BID 7 Days Qty: 14 0RF No Action metoprolol succinate 25 mg tablet extended release 24 hr 12.5 mg PO QDAY Qty: 90 3RF Entresto 24-26 mg tablet 1 tab PO BID Qty: 60 3RF azelastine 137 mcg (0.1 %) aerosol,spray 1 spray intranasal BID Qty: 30 3RF Rx Instructions: administer into each nostril levocetirizine [Xyzal] 5 mg tablet 5 mg PO DAILY Qty: 30 3RF omeprazole 40 mg capsule,delayed release(DR/EC) 40 mg PO DAILY Patient Comments: TAKE 1 CAPSULE BY MOUTH DAILY ondansetron HCl 4 mg tablet 4 mg PO Q8H meclizine [Dramamine (meclizine)] 25 mg tablet 25 mg PO DAILY PRN Referrals Follow up/Referrals: Thomas Meneses MD [Primary Care Provider] - See instructions Activity Restrictions/Add. Instructions Additional Instructions/Restrictions: Please follow-up with your primary care provider as soon as possible. Please return to the emergency department if you develop any new or worsening symptoms or become concerned for your health. Please take antibiotics as prescribed for dog bite and cellulitis. Please wash the wound with soap and water twice a day. Otherwise keep clean, dry and covered. Please monitor the extent of the redness. If it continues to enlarge, recommend returning for further evaluation. If you develop pain in the elbow, recommend returning for evaluation as this could be a sign of a joint infection. Clinical Impressions Clinical Impression: Dog bite Qualifiers: Encounter type: initial encounter Qualified Code(s): W54.0XXA - Bitten by dog, initial encounter Cellulitis Qualifiers: Site of cellulitis of extremity: upper extremity Laterality: right Stand Alone Forms Stand Alone Forms: Work/School Release Instructions Patient Instructions: Animal Bites Discharge ED Provider: Darinel Delacruz General Adult HPI General Chief complaint: Animal Bite Stated complaint: WC 12/16 RT arm dog bite, LT shoulder pain Time Seen by Provider: 12/17/23 23:00 History of Present Illness HPI narrative: 43-year-old male presents with worsening pain and redness from a dog bite on his right arm. 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 He was seen shortly after the dog bite at [facility] or his wounds were closed With 9 sutures. He reports he was not given any antibiotics but was given a tetanus shot. He was discharged with oral amoxicillin but it was sent to the pharmacy that was closed on the weekends and when they called they were unable to get it changed. He reports worsening redness that is extending down the arm. He reports worsening pain. He denies any purulent drainage. He also reports mild left shoulder pain that he started noticing after he had left the other hospital. He reports the dog is up-to-date on shots and that animal control is involved. Related Data Home Medications Medication Instructions Recorded Confirmed meclizine 25 mg tablet (Dramamine 25 mg PO DAILY PRN 08/24/23 12/13/23 (meclizine)) ondansetron HCl 4 mg tablet 4 mg PO Q8H 08/24/23 12/13/23 omeprazole 40 mg capsule,delayed 40 mg PO DAILY 12/13/23 12/13/23 release Previous Rx's Medication Instructions Recorded metoprolol succinate 25 mg 12.5 mg PO QDAY #90 tabs 10/04/23 tablet,extended release 24 hr sacubitril 24 mg-valsartan 26 mg 1 tab PO BID #60 tabs 10/04/23 tablet (Entresto) azelastine 137 mcg (0.1 %) nasal 1 spray intranasal BID #30 mL 10/23/23 spray aerosol levocetirizine 5 mg tablet (Xyzal) 5 mg PO DAILY #30 tabs 10/23/23 amoxicillin 875 mg-potassium 1 tab PO BID 7 days #14 tabs 12/18/23 clavulanate 125 mg tablet Allergies Allergy/AdvReac Type Severity Reaction Status Date / Time No Known Allergies Allergy Verified 12/13/23 14:26 [facility] Disclaimer: The information contained in this section may have been updated after the patient was seen, as this information can be updated by other users. Medical History Bradycardia Resolved since self discontinuing all medications Chest pain Chronic sinusitis Epistaxis Fatigue Globus sensation Hemorrhoid Hiatal hernia History of COVID-19 History of gastroesophageal reflux (GERD) Hx of pancreatitis Migraine Neck pain Non-cardiac chest pain Non-restorative sleep Nonischemic cardiomyopathy Sinusitis Systolic heart failure Worsening headaches Surgical History History of cardiac cath History of esophagogastroduodenoscopy (EGD) Hx of colonoscopy Family History Other Cancer Diverticulitis Heart disease Social History Smoking Status: Current every day smoker tobacco type: cigarettes packs per day: 1 alcohol intake: never substance use type: denies use current occupational status: employed Travel in the last 8 weeks: None housing: house marital status: ROS Obtained: Yes All systems reviewed & no additional complaints except as documented Physical Exam General General appearance: alert and in no apparent distress Head Head exam: atraumatic and normocephalic Eye Eye exam: Present normal appearance, PERRL and EOMI ENT ENT exam: Present normal oropharynx and normal external ear exam Neck Neck exam: Present normal inspection and full ROM Chest Chest inspection: Present normal inspection and symmetric chest wall rise; Absent tenderness Respiratory Respiratory exam: Present normal lung sounds bilaterally; Absent respiratory distress Cardiovascular Cardiovascular exam: Present regular rate and normal rhythm Abdominal Exam Abdominal exam: Present soft; Absent distention, tenderness or guarding Extremities Exam Extremities exam: Present other (Left upper extremity: Tenderness over the deltoid. No bony abnormality. Right upper extremity: Multiple puncture wounds and a laceration noted on the lower posterior aspect of the right upper arm. there is erythema and tenderness extending inferiorly towards the elbow. No fluctuance or purulence) Back Exam Back exam: Present normal inspection; Absent tenderness Neurological Exam Neurological exam: Present alert and oriented X3; Absent motor sensory deficit Psychiatric Psychiatric exam: Present normal affect and normal mood Skin Skin exam: Present warm, dry and normal color Lymphatic Lymphatic Findings: no adenopathy Medical Decision Making Medical Records Medical records reviewed: Yes I reviewed the patient's medical records. Aneudy Inquiry Pt receiving controlled substance: No Aneudy was queried for this patient: No Vital Signs: 12/17/23 22:59 12/18/23 00:32 Temperature 98.2 F 98.2 F Temperature Source Oral Oral Pulse Rate 78 Pulse Rate [Left] 78 Respiratory Rate 18 18 Blood Pressure 122/84 Blood Pressure [Right Arm] 118/93 H Blood Pressure Mean [Right Arm] 101 Blood Pressure Source Automatic Cuff Blood Pressure Source [Right Arm] Automatic Cuff Blood Pressure Position Sitting Blood Pressure Position [Right Arm] Sitting 02 Sat by Pulse Oximetry 99 Oxygen Delivery Method Room Air Room Air Lab Data Lab results reviewed: Yes I reviewed the patient's lab results. Orders (Tests/Meds): ED MEDICATIONS Discontinued Medications Generic Name Dose Route Start Last Admin Trade Name Freq PRN Reason Stop Dose Admin Acetaminophen 1,000 mg 12/17/23 23:17 12/17/23 23:23 Acetaminophen 500mg Tab PO 12/17/23 23:18 1,000 mg ONCE ONE Administration Amoxicillin/Clavulanate Potassium 1 each 12/18/23 00:18 12/18/23 00:24 Amoxicillin/Clavulanate Potassium 875/125mg Tablet PO 12/18/23 00:19 1 each ONCE ONE Administration Ampicillin Sodium/Sulbactam 100 mls @ 200 mls/hr 12/17/23 23:17 12/17/23 23:22 Sodium 3 gm/ Sodium Chloride IV 12/17/23 23:18 200 mls/hr ONCE ONE Administration Ibuprofen 600 mg 12/17/23 23:17 12/17/23 23:23 Ibuprofen 600 Mg Tablet PO 12/17/23 23:18 600 mg ONCE ONE Administration ORDERS Category Date Time Status Humerus XR right [XR humerus RT] Stat Exams 12/17/23 23:17 Completed Shoulder XR left minimum 2 views [XR shoulder LT min 2V Exams 12/17/23 23:30 Completed ] Stat Medical Decision Narrative: 43-year-old male presents approximately 36 hours after a dog bite to right arm with worsening redness and pain, also has some left shoulder pain after falling. See HPI for details. Patient appears to have received inappropriate care including primary closure of deep dog bite and puncture wounds, as well as not receiving any antibiotics in the ED and being prescribed inappropriate antibiotics to include pharmacy over the weekend, though I do not have the patient's hospital records to corroborate this. Differential diagnosis includes but not limited to abscess, cellulitis, necrotizing fasciitis, bursitis, septic arthritis. Patient's exam is consistent with a developing/somewhat rapidly progressing cellulitis. No evidence of abscess. No gas on imaging to suggest necrotizing infection. No pain with range of motion of the joint to suggest a septic joint at this time. The patient's lacerations are not over the joint space, though the cellulitis is beginning to spread over the posterior aspect of the elbow. On my interpretation, radiographs of the affected extremities show no evidence of fracture or retained foreign body. I gave the patient 3 g of IV Unasyn for empiric coverage of dog bite. I prescribed him Augmentin for appropriate p.o. antibacterial coverage. I removed all of the patient's sutures to attempt to let the wound heal by secondary intention. Extensive discussion was had with patient and patient's regarding his presentation. I gave specific wound care instructions and expectations, instructions regarding monitoring of worsening infection and signs and symptoms of a septic joint, as well as strict return precautions. I instructed patient to follow-up with PCP for further assessment. Procedures Risk/Benefits of Procedure(s) Were Explained: Yes Critical Care Critical Care Time Critical Care Time: No
--- NOTE | 2023-12-17 23:17 | XR_ITS ---
PROCEDURE INFORMATION: Exam: XR Right Humerus Exam date and time: 12/17/2023 11:21 PM Age: 43 years old Clinical indication: Injury or trauma; Other: Dog bite; Work related; Arm, upper; Right TECHNIQUE: Imaging protocol: Radiologic exam of the right humerus. Views: 2 or more views. COMPARISON: US CA ARTERIAL PSEUDO RT UPPER 05/01/2023 2:50 PM FINDINGS: Bones/joints: No evidence of acute fracture or dislocation. No erosive disease. No significant degenerative change. Soft tissues: No radiopaque foreign body. No visible soft tissue gas. IMPRESSION: No acute bony injury. No radiopaque foreign body.
[2023-12-17] MEDS: AMPICILLIN SODIUM/SULBACTAM 3 GM in 0.9 % SODIUM CHLORIDE 100 ML IV (23:22)
[2023-12-17] MEDS: IBUPROFEN 600 MG TABLET PO (23:23)
[2023-12-17] MEDS: ACETAMINOPHEN 500MG TAB 1000 MG PO (23:23)
--- NOTE | 2023-12-17 23:30 | XR_ITS ---
PROCEDURE INFORMATION: Exam: XR Left Shoulder Exam date and time: 12/17/2023 11:23 PM Age: 43 years old Clinical indication: Pain; Shoulder; Left; Additional info: Fall pain TECHNIQUE: Imaging protocol: Radiologic exam of the left shoulder. Views: 2 or more views. COMPARISON: CR XR CERVICAL SPINE W FLEX/EXT 07/24/2023 3:25 PM FINDINGS: Bones/joints: No evidence of acute fracture or dislocation. No erosive disease. No significant degenerative change. Soft tissues: Normal. IMPRESSION: No acute bony injury.
--- NOTE | 2023-12-18 00:21 | PC.NURSE ---
speaking with cuauhtemoc sosa, cleaner housekeeping at [facility].
[2023-12-18] MEDS: AMOXICILLIN/CLAVULANATE POTASSIUM 875/125MG TABLET 1 EACH PO (00:24)
[2023-12-18 00:32] VITALS: BP 122/84; PULSE 78; RESP 18; TEMP 36.8; O2SAT 98
== END 2023-12-18 00:33 | disposition home or self-care (01) ==
PROVIDERS: Emergency Provider Emergency Medicine; PCP Internal Medicine Adolescent Medicine
DX: L03.113 Cellulitis of right upper limb (principal); S41.151A Open bite of right upper arm, initial encounter; M25.512 Pain in left shoulder; W54.0XXA Bitten by dog, initial encounter
CPT/HCPCS: 73030; 73060; 96374; 99284

== ENCOUNTER 2023-12-19 17:16 | Observation (INO) | payer OTHER, SELFPAY ==
[2023-12-19 17:17] VITALS: BP 112/72; PULSE 70; RESP 20; TEMP 36.7; O2SAT 99; BMI 19.1
[2023-12-19 17:55] VITALS: BP 112/72; PULSE 68; O2SAT 98
[2023-12-19 18:00] VITALS: BP 100/69; PULSE 85; O2SAT 97
--- NOTE | 2023-12-19 18:10 | HMH.EDGENADL ---
Discharge Plan Disposition Patient Disposition: Admitted Prescriptions Prescriptions: No Action metoprolol succinate 25 mg tablet extended release 24 hr 12.5 mg PO QDAY Qty: 90 3RF Entresto 24-26 mg tablet 1 tab PO BID Qty: 60 3RF azelastine 137 mcg (0.1 %) aerosol,spray 1 spray intranasal BID Qty: 30 3RF Rx Instructions: administer into each nostril levocetirizine [Xyzal] 5 mg tablet 5 mg PO DAILY Qty: 30 3RF omeprazole 40 mg capsule,delayed release(DR/EC) 40 mg PO DAILY Patient Comments: TAKE 1 CAPSULE BY MOUTH DAILY ondansetron HCl 4 mg tablet 4 mg PO Q8H meclizine [Dramamine (meclizine)] 25 mg tablet 25 mg PO DAILY PRN amoxicillin-pot clavulanate 875-125 mg tablet 1 tab PO BID 7 Days Qty: 14 0RF Referrals Follow up/Referrals: Thomas Meneses MD [Primary Care Provider] - See instructions Clinical Impressions Clinical Impression: Cellulitis of arm, right, Dog bite, Failure of outpatient treatment Instructions Patient Instructions: DI for Laceration Repair Discharge ED Provider: Gm Hernandez General Adult HPI General Chief complaint: Wound/Laceration Stated complaint: WC -Sent by [facility]-dog bite red swelling Time Seen by Provider: 12/19/23 17:57 History of Present Illness HPI narrative: Patient is a 43-year-old male presents today with right arm cellulitis that is refractory to outpatient management. Was bitten by a dog in the right upper arm on Monday. States that his antibiotic was sent into his pharmacy but he was unable to get any antibiotics into his body until Monday. Came back to the emergency department on Monday with worsening and spreading redness sutures were removed and patient was given oral antibiotics and told to return with any significant worsening of his symptoms. He has now having significant worsening of his symptoms including spreading redness. He has full range of motion to his elbow no joint injury or injury overlying his joint the laceration was in the mid upper humeral region. No fevers or chills. Patient denies any other medical problems other than some chronic cardiac disease. He has been taking Augmentin for the last 48 hours. Related Data Home Medications Medication Instructions Recorded Confirmed meclizine 25 mg tablet (Dramamine 25 mg PO DAILY PRN 08/24/23 12/13/23 (meclizine)) ondansetron HCl 4 mg tablet 4 mg PO Q8H 08/24/23 12/13/23 omeprazole 40 mg capsule,delayed 40 mg PO DAILY 12/13/23 12/13/23 release Previous Rx's Medication Instructions Recorded metoprolol succinate 25 mg 12.5 mg PO QDAY #90 tabs 10/04/23 tablet,extended release 24 hr sacubitril 24 mg-valsartan 26 mg 1 tab PO BID #60 tabs 10/04/23 tablet (Entresto) azelastine 137 mcg (0.1 %) nasal 1 spray intranasal BID #30 mL 10/23/23 spray aerosol levocetirizine 5 mg tablet (Xyzal) 5 mg PO DAILY #30 tabs 10/23/23 amoxicillin 875 mg-potassium 1 tab PO BID 7 days #14 tabs 12/18/23 clavulanate 125 mg tablet Allergies Allergy/AdvReac Type Severity Reaction Status Date / Time No Known Allergies Allergy Verified 12/13/23 14:26 [facility] Disclaimer: The information contained in this section may have been updated after the patient was seen, as this information can be updated by other users. Medical History Bradycardia Resolved since self discontinuing all medications Chest pain Chronic sinusitis Epistaxis Fatigue Globus sensation Hemorrhoid Hiatal hernia History of COVID-19 History of gastroesophageal reflux (GERD) Hx of pancreatitis Migraine Neck pain Non-cardiac chest pain Non-restorative sleep Nonischemic cardiomyopathy Sinusitis Systolic heart failure Worsening headaches Surgical History History of cardiac cath History of esophagogastroduodenoscopy (EGD) Hx of colonoscopy Family History Other Cancer Diverticulitis Heart disease Social History Smoking Status: Current every day smoker tobacco type: cigarettes packs per day: 1 alcohol intake: never substance use type: denies use current occupational status: employed Travel in the last 8 weeks: None housing: house marital status: ROS Obtained: Yes All systems reviewed & no additional complaints except as documented Physical Exam General General appearance: alert Respiratory Respiratory exam: Present normal lung sounds bilaterally Cardiovascular Cardiovascular exam: Present regular rate Extremities Exam Extremities exam: Present other (There is erythema spreading from the mid lateral aspect of the humerus down to the mid forearm extending beyond the elbow which has full range of motion and no swelling no fluctuance anywhere) Neurological Exam Neurological exam: Present alert Medical Decision Making Aneudy Inquiry Pt receiving controlled substance: No Vital Signs: 12/19/23 17:17 12/19/23 17:55 12/19/23 18:00 Temperature 98.1 F Temperature Source Oral Pulse Rate 68 85 Pulse Rate [Right Radial] 70 Respiratory Rate 20 Blood Pressure 112/72 100/69 L Blood Pressure [Right Arm] 112/72 Blood Pressure Mean [Right Arm] 85 02 Sat by Pulse Oximetry 99 98 97 Oxygen Delivery Method Room Air Room Air Room Air Lab Data Lab results reviewed: Yes I reviewed the patient's lab results. Lab Results 12/19/23 18:35: WBC 7.0, RBC 4.37 L, Hgb 13.6 L, Hct 38.6 L, MCV 88.4, MCH 31.1, MCHC 35.2, RDW 13.0, Plt Count 170, MPV 9.7, Neut % (Auto) 66.6, Lymph % (Auto) 22.7, [place] % (Auto) 6.1, Eos % (Auto) 4.3, Baso % (Auto) 0.4, Neut # (Auto) 4.7, Lymph # (Auto) 1.6, [place] # (Auto) 0.4, Eos # (Auto) 0.3, Baso # (Auto) 0.0, ESR 33 H, Sodium 139, Potassium 3.7, Chloride 103, Carbon Dioxide 31 H, Anion Gap 8.7, BUN 9, Creatinine 1.10, Estimated Creat Clear 68, Estimated GFR 73, Est GFR ( Amer) 88, Glucose 90, Lactate 0.9, Calcium 8.9, Total Bilirubin 0.4, AST 24, ALT 16, Alkaline Phosphatase 105, C-Reactive Protein 27.1 H, Total Protein 7.4, Albumin 4.1, Globulin 3.3 H, Albumin/Globulin Ratio 1.2 12/19/23 18:35 12/19/23 18:35 Orders (Tests/Meds): ED MEDICATIONS Generic Name Dose Route Start Last Admin Trade Name Freq PRN Reason Stop Dose Admin Sodium Chloride 10 ml 12/19/23 18:41 Sodium Chloride 0.9% 10ml Flush Syringe IV 01/18/24 18:40 NEEDED PRN Maintain IV Site Discontinued Medications Generic Name Dose Route Start Last Admin Trade Name Layo PRN Reason Stop Dose Admin Ampicillin Sodium/Sulbactam 100 mls @ 200 mls/hr 12/19/23 18:07 12/19/23 19:28 Sodium 3 gm/ Sodium Chloride IV 12/19/23 18:08 200 mls/hr ONCE ONE Administration Lactated Ringer's 1,000 mls @ 999 mls/hr 12/19/23 18:15 12/19/23 19:29 Lactated Ringer's 1000 Ml Bag IV 12/19/23 19:15 999 mls/hr .Q1H1M JURGEN Administration ORDERS Category Date Time Status POCUS Point of Care (ER Only) Stat Exams 12/19/23 18:08 Ordered CBC w/Auto Diff [Complete Blood Count Auto Diff] Stat Lab 12/19/23 18:35 Completed CMP [Comprehensive Metabolic Panel] Stat Lab 12/19/23 18:35 Completed CRP [C-Reactive Protein] Stat Lab 12/19/23 18:35 Completed ESR [Erythrocyte Sedimentation Rate] Stat Lab 12/19/23 18:35 Completed Lactic Acid Stat Lab 12/19/23 18:35 Completed Blood Culture Stat Micro 12/19/23 18:35 Received Medical Decision Narrative: Patient is a 43-year-old male with refractory cellulitis despite 48 hours of Augmentin from a dog bite. His exam is not consistent with an abscess but we will do a soft tissue ultrasound to make sure does not have a localized fluid collection. Also he has good range of motion of not concerned about an arthrotomy or any intra-articular involvement. I do not suspect necrotizing infection. He has failed his oral antibiotics will initiate ampicillin sulbactam and give IV fluids. I anticipate he will be admitted for IV antibiotics and he is agreeable to this plan. Reassessment patient remained stable labs unremarkable from an emergency standpoint I discussed the case with Jim with hospital medicine who agreed to admit the patient for further treatment. Procedures Miscellaneous Procedure Procedure Performed: Limited soft tissue ultrasound Indication: Soft tissue swelling and redness Identified structures: Location: Right upper extremity Findings: No localized drainable fluid collection however there is fluid that is tracking and subcutaneous tissue and consistent with cobblestoning Impression: Right upper extremity cellulitis without evidence of definitive drainable fluid collection or abscess Images were saved to permanent archive The study was technically adequate Soft Tissue CPT Codes: CPT Neck: 10449-69 CPT Upper extremity: 01482-77 CPT Axilla: 98523-93 CPT Chest wall: 04162-36 CPT Breast: 00185-01-GG/LT (complete), 94493-00-FV/LT (limited), CPT Upper Back: 23532-76 CPT Lower Back: 13963-87 CPT Abdominal Wall: 26724-21 CPT Pelvic Wall: 56375-65 CPT Lower Extremity: 91044-66 CPT Other Soft Tissue: 97987-52 This study was performed by me, and I personally interpreted all images/videos. Based on my clinical judgement, these images were adequate and did not necessitate further imaging. Critical Care Critical Care Time Critical Care Time: No
[2023-12-19 18:52] LABS: Basophils % 0.4 % (0.1-2.0); Eosinophils # 0.3 K/mm3 (0.0-0.4); Eosinophils % 4.3 % (0.1-12.0); Hematocrit 38.6 % (42.0-52.0); Hemoglobin 13.6 g/dL (14.1-18.0); Lymphocytes # 1.6 K/mm3 (0.7-4.5); Lymphocytes % 22.7 % (10-50); Mean Corpuscular HGB Conc 35.2 g/dL (31.8-35.4); Mean Corpuscular Hemoglobin 31.1 pg (27.0-31.2); Mean Corpuscular Volume 88.4 fl (80-94); Mean Platelet Volume 9.7 fl (7.4-10.4); Monocytes # 0.4 K/mm3 (0.1-1.0); Monocytes % 6.1 % (1.7-9.3); Neutrophils # 4.7 K/mm3 (1.8-7.8); Neutrophils % 66.6 % (37.0-80.0); Platelet Count 170 K/mm3 (142-424); Red Blood Count 4.37 M/mm3 (4.60-6.20)
[2023-12-19 18:53] LABS: Chloride 103 mmol/L (98-107)
[2023-12-19 18:54] LABS: Potassium 3.7 mmoL/L (3.5-5.1); Sodium 139 mmol/L (136-145)
[2023-12-19 18:56] LABS: Alanine Aminotransferase 16 U/L (12-78); Alkaline Phosphatase 105 U/L (38-126); Aspartate Amino Transferase 24 U/L (17-59); Bilirubin,Total 0.4 mg/dl (0.2-1.3); Blood Urea Nitrogen 9 mg/dl (9-20); Creatinine Clearance Estimated 68 mL/min (50-200); Estimated Glomerular Filt Rate 73 ml/min (>60); GFR (African American) 88 ML/MIN (>60)
[2023-12-19 18:57] LABS: Albumin Level 4.1 g/dl (3.5-5.0); Albumin/Globulin Ratio 1.2 (1.1-1.8); Anion Gap 8.7 mEq/L (5-15); Calcium 8.9 mg/dl (8.4-10.2); Carbon Dioxide 31 mmol/L (22.0-30.0); Globulin 3.3 g/dL (1.3-3.2); Glucose 90 mg/dl (74-100); Total Protein,Serum 7.4 g/dl (6.3-8.2)
[2023-12-19 18:58] LABS: Lactic Acid 0.9 mmol/L (0.7-2.1)
[2023-12-19 19:06] LABS: C-Reactive Protein 27.1 mg/L (0-4)
[2023-12-19 19:17] LABS: Erythrocyte Sedimentation Rate 33 mm/hr (0-15)
[2023-12-19] MEDS: AMPICILLIN SODIUM/SULBACTAM 3 GM in 0.9 % SODIUM CHLORIDE 100 ML IV (19:28)
[2023-12-19] MEDS: LACTATED RINGERS 1000ML 1,000 ML 999 ML IV (19:29)
--- NOTE | 2023-12-19 20:07 | PC.NURSE ---
notified [facility] laborer of admission at this time
--- NOTE | 2023-12-19 20:23 | PC.NURSE ---
attempted to call report to floor
--- NOTE | 2023-12-19 20:33 | PC.NURSE ---
called report to Fawn CARRILLO on 2nd floor and answered all questions.
[2023-12-19 20:34] VITALS: BP 104/70; PULSE 74; RESP 18; TEMP 36.7; O2SAT 98
--- NOTE | 2023-12-19 20:35 | PC.NURSE ---
Received report from LORENA Waters
--- NOTE | 2023-12-19 20:59 | P.HP_ITS ---
History of Present Illness *Admission Date: 12/19/23 *Reason for visit:: cellulitis. Dog bite *History of present illness: This is a 43-year-old male with apperent PMHx of CHF, cardiomiopathy and current day heavy smoker presented today with right arm cellulitis that is refractory to outpatient management. 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 Went to [facility] was sutured and sent home with oral antibiotic. He was unable to get any antibiotics until Monday. Came back to the emergency department on Monday with worsening and spreading redness sutures were removed and patient was given oral antibiotics and told to return with any significant worsening of his symptoms. He has now having significant worsening of his symptoms including spreading redness. He has full range of motion to his elbow no joint injury or injury overlying his joint the laceration was in the mid upper humeral region. No fevers or chills. Patient denies any other medical problems other than some chronic cardiac disease. He has been taking Augmentin for the last 48 hours. Admitted for treatment and management. [facility] Disclaimer: The information contained in this section may have been updated after the patient was seen, as this information can be updated by other users. Medical History (Updated 12/20/23 @ 03:00 by Rex Forte APRN) Bradycardia Chest pain Chronic sinusitis Epistaxis Fatigue Globus sensation Hemorrhoid Hernia Hiatal hernia History of COVID-19 History of gastroesophageal reflux (GERD) Hx of pancreatitis Migraine Neck pain Non-cardiac chest pain Non-restorative sleep Nonischemic cardiomyopathy Sinusitis Systolic heart failure Worsening headaches Surgical History History of cardiac cath History of esophagogastroduodenoscopy (EGD) Hx of colonoscopy Family History (Updated 12/19/23 @ 21:11 by Fawn Ryder RN) Other Cancer Diverticulitis Family history of hyperthyroidism Heart disease Social History (Updated 12/19/23 @ 21:13 by Fawn Ryder RN) Smoking Status: Current every day smoker tobacco type: cigarettes packs per day: 1 alcohol intake: never substance use type: denies use current occupational status: employed Travel in the last 8 weeks: None housing: house marital status: Review of Systems Review of Systems Review of systems:: pertinent systems reviewed and negative unless documented below Meds Home Medications and Allergies Home Medications Medication Instructions Recorded Confirmed Type omeprazole 40 mg capsule,delayed 40 mg PO DAILY 12/13/23 12/19/23 History release levocetirizine 5 mg tablet (Xyzal) 5 mg PO DAILY Allergy Symptoms 12/20/23 12/20/23 History metoprolol succinate 25 mg 12.5 mg PO DAILY High Blood 12/20/23 12/20/23 History tablet,extended release 24 hr Pressure sacubitril 24 mg-valsartan 26 mg 1 tab PO BID Heart Failure 12/20/23 12/19/23 History tablet (Entresto) tizanidine 2 mg tablet 2 mg PO BIDP PRN Muscle Spasm 12/20/23 12/20/23 History cyclobenzaprine 7.5 mg tablet 7.5 mg PO TID PRN muscle spasm 3 12/21/23 Rx days #9 tabs doxycycline hyclate 100 mg capsule 100 mg PO BID #20 caps 12/21/23 Rx naproxen 250 mg tablet 250 mg PO BID PRN pain 3 days #9 12/21/23 Rx tabs nicotine 21 mg/24 hr daily 21 mg transdermal DAILYP PRN 12/21/23 Rx transdermal patch Nicotine Cravings 14 days #14 ea New Prescriptions to Start Prescriptions: cyclobenzaprine Jozef,Irfan doxycycline hyclate Jozef,Irfan naproxen Jozef,Irfan nicotine Jozef,Irfan Allergies Allergy/AdvReac Type Severity Reaction Status Date / Time No Known Allergies Allergy Verified 12/13/23 14:26 Exam Data for Last 24 hours Vital signs and Labs for Last 24 Hours: Temp Pulse Resp BP Pulse Ox O2 Del Method 98.1 F 74 18 104/70 L 97 Room Air 12/19/23 20:34 12/19/23 20:34 12/19/23 20:34 12/19/23 20:34 12/19/23 18:00 12/19/23 20:34 Laboratory Results - last 24 hr 12/19/23 18:35: WBC 7.0, RBC 4.37 L, Hgb 13.6 L, Hct 38.6 L, MCV 88.4, MCH 31.1, MCHC 35.2, RDW 13.0, Plt Count 170, MPV 9.7, Neut % (Auto) 66.6, Lymph % (Auto) 22.7, [place] % (Auto) 6.1, Eos % (Auto) 4.3, Baso % (Auto) 0.4, Neut # (Auto) 4.7, Lymph # (Auto) 1.6, [place] # (Auto) 0.4, Eos # (Auto) 0.3, Baso # (Auto) 0.0, ESR 33 H, Sodium 139, Potassium 3.7, Chloride 103, Carbon Dioxide 31 H, Anion Gap 8.7, BUN 9, Creatinine 1.10, Estimated Creat Clear 68, Estimated GFR 73, Est GFR ( Amer) 88, Glucose 90, Lactate 0.9, Calcium 8.9, Total Bilirubin 0.4, AST 24, ALT 16, Alkaline Phosphatase 105, C-Reactive Protein 27.1 H, Total Protein 7.4, Albumin 4.1, Globulin 3.3 H, Albumin/Globulin Ratio 1.2 I & O for Last 24 hours: Intake & Output 12/16/23 12/17/23 12/18/23 12/19/23 23:59 23:59 23:59 23:59 Weight 55.338 kg Constitutional Constitutional: mild distress and cooperative *Routine HEENT Exam Head: Present normocephalic and atraumatic Eye: Present EOMI, PERRL and normal accommodation ENT: Present mucous membranes moist *Routine Neck Exam Neck: Present supple, full ROM and trachea midline *Routine Respiratory Exam Respiratory: Present CTA bilaterally, normal respiratory effort and symmetric chest movement; Absent respiratory distress *Routine Cardiovascular Exam Cardiovascular: Present RRR, Normal S1 and Normal S2 *Routine Abdominal Exam Abdominal: Present soft and normoactive bowel sounds; Absent tenderness or organomegaly *Routine Rectal Exam Rectal:: deferred *Routine Genitalia Exam Genitalia:: deferred *Routine Extremities Exam Extremities: Present full ROM and pulses intact; Absent cyanosis, clubbing or edema *Routine Skin Exam Skin: Present erythema, warm, lesions and wounds Comments: right elbow dog bite, redness and swollen *Routine Neurological Exam Neurological: Present alert, oriented X3, normal reflexes, moving all extremities and normal speech Routine Psychiatric Exam Psychiatric: Present normal thought process, cooperative, good judgment and anxious H&P: Result Imaging and Cardiology elbow/Shoulder X ray : Status: image reviewed by me, Preliminary report and final report EKG: Status: image reviewed by me and Preliminary report Assessment and Plan *Assessment and plan (1) Cellulitis of arm, right: Status: Acute Category: Medical Code(s): L03.113 - Cellulitis of right upper limb (2) Dog bite: Status: Acute Qualifiers: Encounter type: subsequent encounter Qualified Code(s): W54.0XXD - Bitten by dog, subsequent encounter Category: Medical Code(s): W54.0XXA - Bitten by dog, initial encounter (3) Failure of outpatient treatment: Status: Acute Category: Medical Code(s): Z78.9 - Other specified health status (4) Smoker: Status: Acute Category: Social Hx Code(s): F17.200 - Nicotine dependence, unspecified, uncomplicated (5) Cardiomyopathy: Problem Comment: Active follow-up with [facility] cardiology, cannot exclude headaches due to side effect of medications or hypotension Status: Chronic Qualifiers: Cardiomyopathy type: other Qualified Code(s): I42.8 - Other cardiomyopathies Category: Medical Code(s): I42.9 - Cardiomyopathy, unspecified Plan 43-year-old male with apperent PMHx of CHF, cardiomiopathy and current day heavy smoker presented today with right arm cellulitis that is refractory to outpatient management. 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 On arrival, patient hemodynamically stable, presented with possible worsening of the right elbow. Redness and hot to touch. Limited bedside ultrasound conducted by ER ruled out any soft tissue damage or fluid collection. X-rays are negative. Labs are unremarkable. Findings discussed with the ER. After potentially felt as an outpatient treatment, patient given for admission and clinical management. Plan as follows:. -Cellulitis of the right arm secondary to by presented with failure as an outpatient treatment: Admit patient for medical services. Dispo MedSurg Unasyn IV dose given at ER. Will continue with Zosyn 4.5Q8h Blood culture pending tetanus boost given at previous visit Wound care for assistance Pain management. Tylenol as needed Repeat labs in the morning Monitor for sepsis and temperature Vital signs per unit -Current daily heavy smoker: Spent more than 20 minutes on smoking cessation. Will be on nicotine patch -History of cardiomyopathy with CHF: Condition reviewed and stable. Not on exacerbation Continue monitor for O2 saturation. Resume home Entresto metoprolol Lovenox for DVT prophylaxis. Protonix for GERD and GI bleed prophylaxis Full code Attending attestation Patient was seen and evaluated at the bedside myself, agree with MARIA R note.
[2023-12-19 21:00] VITALS: O2SAT 100
[2023-12-19 21:08] VITALS: BP 104/70; PULSE 58; RESP 18; TEMP 36.7; O2SAT 100
--- NOTE | 2023-12-19 21:14 | PC.NURSE ---
pt arrived to floor via wheelchair @20:49
--- NOTE | 2023-12-19 21:40 | PC.WOUNDNOTE ---
Cellulitis to RUE.
[2023-12-19] MEDS: PIPERACILLIN/TAZO 4.5 GM in 0.9 % SODIUM CHLORIDE 100 ML IV (22:09)
[2023-12-19] MEDS: PANTOPRAZOLE 40MG TABLET 40 MG PO (22:11)
[2023-12-19] MEDS: DOCUSATE SODIUM 100 MG CAPSULE PO (22:12)
[2023-12-19] MEDS: ACETAMINOPHEN 325MG TAB 650 MG PO (22:12)
[2023-12-19] MEDS: ENOXAPARIN 40MG/0.4ML SYRINGE 40 MG SQ (22:12)
--- NOTE | 2023-12-20 00:06 | PC.NURSE ---
wound to RUE cleaned and dressed with non-adherent ABD pad, 4x4 gauze for comfort due to pain, and curlex. Wound is from a dog bite and is approximately 4cm x 5cm and has a small amount of serous drainage.
[2023-12-20 04:00] VITALS: BP 105/59; PULSE 56; RESP 20; TEMP 36.6; O2SAT 99; BMI 19.6
[2023-12-20] MEDS: PIPERACILLIN/TAZO 4.5 GM in 0.9 % SODIUM CHLORIDE 100 ML IV ×3 (04:07→20:45)
--- NOTE | 2023-12-20 05:55 | PC.NURSE ---
Pt is A/O x4, pt is very pleasant and offers no complaints outside of pain. Pt has C/O moderate pain this shift and has been treated per mar. Pt has tolerated antibiotic therapy well and wound has been dressed (see previous notes)
[2023-12-20 07:42] LABS: Chloride 107 mmol/L (98-107); Sodium 138 mmol/L (136-145)
[2023-12-20 07:43] LABS: Potassium 3.9 mmoL/L (3.5-5.1)
[2023-12-20 07:45] LABS: Alanine Aminotransferase 19 U/L (12-78); Alkaline Phosphatase 103 U/L (38-126); Anion Gap 5.9 mEq/L (5-15); Aspartate Amino Transferase 36 U/L (17-59); Bilirubin,Total 0.3 mg/dl (0.2-1.3); Blood Urea Nitrogen 10 mg/dl (9-20); Carbon Dioxide 29 mmol/L (22.0-30.0); Creatinine Clearance Estimated 85 mL/min (50-200); Estimated Glomerular Filt Rate 92 ml/min (>60); GFR (African American) 111 ML/MIN (>60)
[2023-12-20 07:46] LABS: Albumin Level 3.6 g/dl (3.5-5.0); Albumin/Globulin Ratio 1.2 (1.1-1.8); Calcium 8.6 mg/dl (8.4-10.2); Globulin 2.9 g/dL (1.3-3.2); Glucose 102 mg/dl (74-100); Magnesium 2.1 mg/dl (1.6-2.3); Total Protein,Serum 6.5 g/dl (6.3-8.2)
[2023-12-20 07:54] LABS: Basophils % 0.4 % (0.1-2.0); Eosinophils # 0.4 K/mm3 (0.0-0.4); Eosinophils % 7.2 % (0.1-12.0); Hematocrit 38.4 % (42.0-52.0); Lymphocytes # 1.6 K/mm3 (0.7-4.5); Lymphocytes % 32.1 % (10-50); Mean Corpuscular HGB Conc 33.8 g/dL (31.8-35.4); Mean Corpuscular Hemoglobin 30.7 pg (27.0-31.2); Mean Platelet Volume 9.9 fl (7.4-10.4); Monocytes # 0.3 K/mm3 (0.1-1.0); Neutrophils # 2.7 K/mm3 (1.8-7.8); Neutrophils % 54.2 % (37.0-80.0); Platelet Count 148 K/mm3 (142-424); Red Blood Count 4.22 M/mm3 (4.60-6.20); Red Cell Distribution Width 13.1 % (11.5-17.5)
[2023-12-20 08:00] VITALS: BP 110/51; PULSE 51; RESP 21; TEMP 36.4; O2SAT 99
--- NOTE | 2023-12-20 08:08 | HMH.PHAINT1 ---
Pharmacy Intervention Comments: MEDICATION RECONCILIATION COMPLETED ON PATIENT USING EXTERNAL FILL HISTORY FROM PHARMACY. -VIRIDIANA JAIN, TITOD
[2023-12-20] MEDS: PANTOPRAZOLE 40MG TABLET 40 MG PO (09:04)
[2023-12-20] MEDS: DOCUSATE SODIUM 100 MG CAPSULE PO (09:04)
[2023-12-20] MEDS: ENOXAPARIN 40MG/0.4ML SYRINGE 40 MG SQ (09:04)
--- NOTE | 2023-12-20 10:42 | HMH.PTWOUND ---
Rehab Inpt Wound Evaluation Rehab IP Wound Evaluation Start: 12/19/23 20:49 Freq: ONCE Status: Active Protocol: Document 12/20/23 10:34 WENDI (Rec: 12/20/23 10:42 WENDI [id number]) Rehab PT Wound Assessment Subjective Subjective 43 yowm adm to [facility] with worsening cellulitis after a dog bite to the R posterior upper arm ~ 4 days ago. He has been on oral abx x 3 days and now receiving IV abx. He reports continued pain and tenderness from the wound distally to the mid-forearm. MD is tracking increasing redness and edema in his arm as it moves distally. No increased redness superior to the wound. Wound Right Upper Posterior Arm Wound Type dog bite Is This a Chronic Wound Yes Wound Length (cm) 0.5 Wound Width (cm) 0.5 Wound Depth (cm) 0.1 Wound Bed Appearance Shorter,Edematous Wound Margins Description Well Defined Surrounding Tissue Appearance Shorter Edema Type Non-Pitting Edema Appearance Tight,Red Wound Drainage Description Serosanguineous Drainage Amount Small Wound Topical Solution/Irrigant Saline Irrigant Primary Dressing Non-Adherent Gauze Pad Wound Secondary Dressing Type Gauze Roll/Wrap,Elastic Bandage Wound Debridement Method Gauze,Mechanical Wound Debridement Amount of Tissue None Removed Dressing Change Patient Tolerance Tolerated Well Plan/Recommendation Comment Wound itself appears to be in good shape with multiple smaller scabbed wounds surrounding it. Cellulitis evident with continued redness moving in a gravity fed plane distally down to mid-forearm. Compression applied to decrease the edema and prevent further spread if possible. Otherwise, no debridement of the wound itslef appears necessary currently. RN aware and will monitor compression today. Eval Complexity Eval Charge Codes 69926 - High Complexity PHYSICIAN CERTIFICATION: I certify the specified therapy services for [facility] [place] are required, authorized, and reviewed every 30 days.
[2023-12-20] MEDS: METOPROLOL SUCCINATE XL 25MG TABLET 12.5 MG PO (11:34)
[2023-12-20] MEDS: SACUBITRIL/VALSARTAN 24-26MG TABLET 1 EACH PO ×2 (11:34→20:45)
--- NOTE | 2023-12-20 14:40 | EXP.PN ---
Subjective *Date: 12/20/23 *Time: 14:40 Interval history: patient was seen and evaluated at the bedside. No reported acute events overnight, denies chest pain, shortness of breath, nausea, vomiting, abdominal pain. Exam Data for Last 24 hours Vital signs and Labs for Last 24 Hours: Temp Pulse Resp BP Pulse Ox O2 Del Method 97.6 F 51 L 21 110/51 L 99 Room Air 12/20/23 08:00 12/20/23 08:00 12/20/23 08:00 12/20/23 08:00 12/20/23 08:00 12/20/23 14:28 Laboratory Results - last 24 hr 12/19/23 18:35: WBC 7.0, RBC 4.37 L, Hgb 13.6 L, Hct 38.6 L, MCV 88.4, MCH 31.1, MCHC 35.2, RDW 13.0, Plt Count 170, MPV 9.7, Neut % (Auto) 66.6, Lymph % (Auto) 22.7, [place] % (Auto) 6.1, Eos % (Auto) 4.3, Baso % (Auto) 0.4, Neut # (Auto) 4.7, Lymph # (Auto) 1.6, [place] # (Auto) 0.4, Eos # (Auto) 0.3, Baso # (Auto) 0.0, ESR 33 H, Sodium 139, Potassium 3.7, Chloride 103, Carbon Dioxide 31 H, Anion Gap 8.7, BUN 9, Creatinine 1.10, Estimated Creat Clear 68, Estimated GFR 73, Est GFR ( Amer) 88, Glucose 90, Lactate 0.9, Calcium 8.9, Total Bilirubin 0.4, AST 24, ALT 16, Alkaline Phosphatase 105, C-Reactive Protein 27.1 H, Total Protein 7.4, Albumin 4.1, Globulin 3.3 H, Albumin/Globulin Ratio 1.2 12/20/23 06:48: WBC 5.0 D, RBC 4.22 L, Hgb 13.0 L, Hct 38.4 L, MCV 91.0, MCH 30.7, MCHC 33.8, RDW 13.1, Plt Count 148, MPV 9.9, Neut % (Auto) 54.2, Lymph % (Auto) 32.1, [place] % (Auto) 6.0, Eos % (Auto) 7.2, Baso % (Auto) 0.4, Neut # (Auto) 2.7, Lymph # (Auto) 1.6, [place] # (Auto) 0.3, Eos # (Auto) 0.4, Baso # (Auto) 0.0, Sodium 138, Potassium 3.9, Chloride 107, Carbon Dioxide 29, Anion Gap 5.9, BUN 10, Creatinine 0.90, Estimated Creat Clear 85, Estimated GFR 92, Est GFR ( Amer) 111 D, Glucose 102 H, Calcium 8.6, Magnesium 2.1, Total Bilirubin 0.3, AST 36 D, ALT 19, Alkaline Phosphatase 103, Total Protein 6.5, Albumin 3.6 D, Globulin 2.9, Albumin/Globulin Ratio 1.2 I & O for Last 24 hours: Intake & Output 12/17/23 12/18/23 12/19/23 12/20/23 23:59 23:59 23:59 23:59 Intake Total 2059 Output Total 0 / 0 0 / 0 Balance 0 / 1340 2059 Weight 55.338 kg 56.727 kg Constitutional Constitutional: no acute distress *Routine HEENT Exam Head: Present normocephalic Eye: Present EOMI and PERRL ENT: Present mucous membranes moist *Routine Neck Exam Neck: Present supple; Absent lymphadenopathy *Routine Respiratory Exam Respiratory: Present CTA bilaterally *Routine Cardiovascular Exam Cardiovascular: Present RRR *Routine Abdominal Exam Abdominal: Present soft and normoactive bowel sounds; Absent tenderness *Routine Extremities Exam Extremities: Absent cyanosis or clubbing Comments: Redness around elbow, dressing in place *Routine Skin Exam Skin: Present warm; Absent rash *Routine Neurological Exam Neurological: Present alert and oriented X3 Assessment and Plan *Assessment and plan (1) Cellulitis of arm, right: Status: Acute Category: Medical Code(s): L03.113 - Cellulitis of right upper limb (2) Dog bite: Status: Acute Qualifiers: Encounter type: subsequent encounter Qualified Code(s): W54.0XXD - Bitten by dog, subsequent encounter Category: Medical Code(s): W54.0XXA - Bitten by dog, initial encounter (3) Failure of outpatient treatment: Status: Acute Category: Medical Code(s): Z78.9 - Other specified health status (4) Smoker: Status: Acute Category: Social Hx Code(s): F17.200 - Nicotine dependence, unspecified, uncomplicated (5) Cardiomyopathy: Problem Comment: Active follow-up with [facility] cardiology, cannot exclude headaches due to side effect of medications or hypotension Status: Chronic Qualifiers: Cardiomyopathy type: other Qualified Code(s): I42.8 - Other cardiomyopathies Category: Medical Code(s): I42.9 - Cardiomyopathy, unspecified Plan Patient is a 43-year-old male with past medical history of CHF cardiomyopathy multiple who presents to the hospital for right arm swelling after dog bite. Assessment and plan Cellulitis right upper extremity Dog bite right upper extremity Patient is started on Zosyn, continue, cellulitis is improving, will continue Zosyn 3.3 Tetanus booster has been given to patient on previous visit Wound care has been consulted Dressing changes on the wound DC on oral Augmentin/doxycycline likely tomorrow Chronic medical conditions CHF with cardiomyopathy Resume home Entresto, metoprolol Tobacco use Counseled on smoking cessation
--- NOTE | 2023-12-20 14:49 | PC.NURSE ---
aox4, independent with ambulation and toileting. has denied pain at frequent intervals. new dressing applied to arm today. tolerating diet well. denies n/v/d.
[2023-12-20 15:54] VITALS: BP 107/62; PULSE 67; RESP 22; TEMP 36.6; O2SAT 98
[2023-12-20 20:00] VITALS: BP 112/58; PULSE 67; RESP 18; TEMP 36.6; O2SAT 97
[2023-12-21] MEDS: PIPERACILLIN/TAZO 4.5 GM in 0.9 % SODIUM CHLORIDE 100 ML IV (03:12)
[2023-12-21] MEDS: ACETAMINOPHEN 325MG TAB 650 MG PO (03:53)
[2023-12-21 04:00] VITALS: BP 102/52; PULSE 49; RESP 18; TEMP 36.5; O2SAT 95; BMI 19.1
--- NOTE | 2023-12-21 05:00 | PC.NURSE ---
Pt is alert and oriented x4. Pt remains on antibiotic therapy and is tolerating it well. At the beginning of the shift pt asked to have dressing to RUE rewrapped. wound continues to have a small amount of serous drainage and is wrapped with an non-adherent ABD pad, with soft cast wrapping covered by a carolynn bandage. Pt has C/O pain in shoulder and arm this shift and has been treated per JAN. Pt is very pleasant and offers no complaints other than moderate pain. Pt significant other at beside.
[2023-12-21 07:49] VITALS: BP 119/79; PULSE 69; RESP 17; TEMP 36.8; O2SAT 98
[2023-12-21] MEDS: MORPHINE 2MG/ML SYRINGE 2 MG IV (07:55)
[2023-12-21] MEDS: PANTOPRAZOLE 40MG TABLET 40 MG PO (08:01)
[2023-12-21] MEDS: ENOXAPARIN 40MG/0.4ML SYRINGE 40 MG SQ (08:01)
[2023-12-21] MEDS: METOPROLOL SUCCINATE XL 25MG TABLET 12.5 MG PO (08:01)
[2023-12-21] MEDS: SACUBITRIL/VALSARTAN 24-26MG TABLET 1 EACH PO (08:01)
[2023-12-21 09:10] LABS: Basophils % 0.1 % (0.1-2.0); Eosinophils # 0.3 K/mm3 (0.0-0.4); Eosinophils % 4.2 % (0.1-12.0); Hematocrit 39.3 % (42.0-52.0); Hemoglobin 13.6 g/dL (14.1-18.0); Lymphocytes # 1.7 K/mm3 (0.7-4.5); Lymphocytes % 20.4 % (10-50); Mean Corpuscular HGB Conc 34.6 g/dL (31.8-35.4); Mean Corpuscular Hemoglobin 30.7 pg (27.0-31.2); Mean Corpuscular Volume 88.9 fl (80-94); Mean Platelet Volume 9.9 fl (7.4-10.4); Monocytes # 0.3 K/mm3 (0.1-1.0); Monocytes % 4.2 % (1.7-9.3); Neutrophils # 5.9 K/mm3 (1.8-7.8); Neutrophils % 71.1 % (37.0-80.0); Platelet Count 163 K/mm3 (142-424); Red Blood Count 4.43 M/mm3 (4.60-6.20); Red Cell Distribution Width 12.9 % (11.5-17.5); White Blood Count 8.2 K/mm3 (4.8-10.8)
[2023-12-21 09:33] LABS: Alanine Aminotransferase 33 U/L (12-78); Albumin Level 4.2 g/dl (3.5-5.0); Albumin/Globulin Ratio 1.4 (1.1-1.8); Alkaline Phosphatase 109 U/L (38-126); Anion Gap 13.2 mEq/L (5-15); Aspartate Amino Transferase 40 U/L (17-59); Bilirubin,Total 0.3 mg/dl (0.2-1.3); Blood Urea Nitrogen 8 mg/dl (9-20); Calcium 9.2 mg/dl (8.4-10.2); Carbon Dioxide 26 mmol/L (22.0-30.0); Chloride 106 mmol/L (98-107); Creatinine Clearance Estimated 82 mL/min (50-200); Estimated Glomerular Filt Rate 92 ml/min (>60); GFR (African American) 111 ML/MIN (>60); Globulin 3.1 g/dL (1.3-3.2); Glucose 112 mg/dl (74-100); Potassium 4.2 mmoL/L (3.5-5.1); Sodium 141 mmol/L (136-145); Total Protein,Serum 7.3 g/dl (6.3-8.2)
--- NOTE | 2023-12-21 10:12 | EXP.DC.SUM ---
General Admission date:: 12/19/23 Discharge date: 12/21/23 HPI HPI HPI: This is a 43-year-old male with apperent PMHx of CHF, cardiomiopathy and current day heavy smoker presented today with right arm cellulitis that is refractory to outpatient management. 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 Went to [facility] was sutured and sent home with oral antibiotic. He was unable to get any antibiotics until Monday. Came back to the emergency department on Monday with worsening and spreading redness sutures were removed and patient was given oral antibiotics and told to return with any significant worsening of his symptoms. He has now having significant worsening of his symptoms including spreading redness. He has full range of motion to his elbow no joint injury or injury overlying his joint the laceration was in the mid upper humeral region. No fevers or chills. Patient denies any other medical problems other than some chronic cardiac disease. He has been taking Augmentin for the last 48 hours. Admitted for treatment and management. Hospital Course Hospital Course Hospital Course: Patient was seen and evaluated at the bedside on the day of discharge. Patient wishes to be discharged. All patient questions were answered and patient was given time to ask questions. Patient was discharged in stable condition. Patient understands that she can return to ER in case of any sudden changes in health. Total time spent on DC - 38 mins Patient was treated with IV zosyn inpatient and had a great response to it, visble redeness and swelling gone down, patient was discharged in stable condition with PO doxycycline. Patient will be discharged in stable condition Patient is a 43-year-old male with past medical history of CHF cardiomyopathy multiple who presents to the hospital for right arm swelling after dog bite. Assessment and plan Cellulitis right upper extremity Dog bite right upper extremity Doxycline Chronic medical conditions CHF with cardiomyopathy Resume home Entresto, metoprolol Tobacco use Counseled on smoking cessation Exam Data for Last 24 hours Vital signs and Labs for Last 24 Hours: Temp Pulse Resp BP Pulse Ox O2 Del Method 98.3 F 69 17 119/79 98 Room Air 12/21/23 07:49 12/21/23 07:49 12/21/23 07:49 12/21/23 07:49 12/21/23 07:49 12/21/23 09:00 Laboratory Results - last 24 hr 12/21/23 08:47: WBC 8.2 D, RBC 4.43 L, Hgb 13.6 L, Hct 39.3 L, MCV 88.9, MCH 30.7, MCHC 34.6, RDW 12.9, Plt Count 163, MPV 9.9, Neut % (Auto) 71.1, Lymph % (Auto) 20.4, [place] % (Auto) 4.2, Eos % (Auto) 4.2, Baso % (Auto) 0.1, Neut # (Auto) 5.9, Lymph # (Auto) 1.7, [place] # (Auto) 0.3, Eos # (Auto) 0.3, Baso # (Auto) 0.0, Sodium 141, Potassium 4.2, Chloride 106, Carbon Dioxide 26, Anion Gap 13.2, BUN 8 L, Creatinine 0.90, Estimated Creat Clear 82, Estimated GFR 92, Est GFR ( Amer) 111, Glucose 112 H, Calcium 9.2, Total Bilirubin 0.3, AST 40, ALT 33 D, Alkaline Phosphatase 109, Total Protein 7.3, Albumin 4.2 D, Globulin 3.1, Albumin/Globulin Ratio 1.4 I & O for Last 24 hours: Intake & Output 12/18/23 12/19/23 12/20/23 12/21/23 23:59 23:59 23:59 23:59 Intake Total 2570 / 3270 1170 / 1170 Output Total 0 / 0 0 / 0 0 / 0 Balance 0 / 1340 2570 / 3270 1170 / 1170 Weight 55.338 kg 56.727 kg 55.111 kg Constitutional Constitutional: no acute distress *Routine HEENT Exam Head: Present normocephalic Eye: Present EOMI and PERRL ENT: Present mucous membranes moist *Routine Neck Exam Neck: Present supple; Absent lymphadenopathy *Routine Respiratory Exam Respiratory: Present CTA bilaterally *Routine Cardiovascular Exam Cardiovascular: Present RRR *Routine Abdominal Exam Abdominal: Present soft and normoactive bowel sounds; Absent tenderness *Routine Extremities Exam Extremities: Absent cyanosis or clubbing Comments: Redness around elbow has improved, dressing in place *Routine Skin Exam Skin: Present warm; Absent rash *Routine Neurological Exam Neurological: Present alert and oriented X3 Results Data Completed and Pending Labs on day of discharge: Labs from last 24 hours 12/21/23 08:47 WBC 8.2 D RBC 4.43 L Hgb 13.6 L Hct 39.3 L MCV 88.9 MCH 30.7 MCHC 34.6 RDW 12.9 Plt Count 163 MPV 9.9 Neut % (Auto) 71.1 Lymph % (Auto) 20.4 [place] % (Auto) 4.2 Eos % (Auto) 4.2 Baso % (Auto) 0.1 Neut # (Auto) 5.9 Lymph # (Auto) 1.7 [place] # (Auto) 0.3 Eos # (Auto) 0.3 Baso # (Auto) 0.0 Sodium 141 Potassium 4.2 Chloride 106 Carbon Dioxide 26 Anion Gap 13.2 BUN 8 L Creatinine 0.90 Estimated Creat Clear 82 Estimated GFR 92 Est GFR ( Amer) 111 Glucose 112 H Calcium 9.2 Total Bilirubin 0.3 AST 40 ALT 33 D Alkaline Phosphatase 109 Total Protein 7.3 Albumin 4.2 D Globulin 3.1 Albumin/Globulin Ratio 1.4 DS: Diagnosis Discharge Diagnosis (1) Cellulitis of arm, right: Status: Acute Code(s): L03.113 - Cellulitis of right upper limb (2) Dog bite: Status: Acute Code(s): W54.0XXA - Bitten by dog, initial encounter Qualifiers: Encounter type: subsequent encounter Qualified Code(s): W54.0XXD - Bitten by dog, subsequent encounter (3) Failure of outpatient treatment: Status: Acute Code(s): Z78.9 - Other specified health status (4) Smoker: Status: Acute Code(s): F17.200 - Nicotine dependence, unspecified, uncomplicated (5) Cardiomyopathy: Status: Chronic Code(s): I42.9 - Cardiomyopathy, unspecified Qualifiers: Cardiomyopathy type: other Qualified Code(s): I42.8 - Other cardiomyopathies Problem details: Active follow-up with [facility] cardiology, cannot exclude headaches due to side effect of medications or hypotension Meds Home Medications and Allergies Home Medications Medication Instructions Recorded Confirmed Type omeprazole 40 mg capsule,delayed 40 mg PO DAILY 12/13/23 12/19/23 History release levocetirizine 5 mg tablet (Xyzal) 5 mg PO DAILY Allergy Symptoms 12/20/23 12/20/23 History metoprolol succinate 25 mg 12.5 mg PO DAILY High Blood 12/20/23 12/20/23 History tablet,extended release 24 hr Pressure sacubitril 24 mg-valsartan 26 mg 1 tab PO BID Heart Failure 12/20/23 12/19/23 History tablet (Entresto) tizanidine 2 mg tablet 2 mg PO BIDP PRN Muscle Spasm 12/20/23 12/20/23 History cyclobenzaprine 7.5 mg tablet 7.5 mg PO TID PRN muscle spasm 3 12/21/23 Rx days #9 tabs doxycycline hyclate 100 mg capsule 100 mg PO BID #20 caps 12/21/23 Rx naproxen 250 mg tablet 250 mg PO BID PRN pain 3 days #9 12/21/23 Rx tabs nicotine 21 mg/24 hr daily 21 mg transdermal DAILYP PRN 12/21/23 Rx transdermal patch Nicotine Cravings 14 days #14 ea New Prescriptions to Start Prescriptions: cyclobenzaprine Jozef,Irfan doxycycline hyclate Jozef,Irfan naproxen Jozef,Irfan nicotine Jozef,Irfan Allergies Allergy/AdvReac Type Severity Reaction Status Date / Time No Known Allergies Allergy Verified 12/13/23 14:26 Discharge Plan Disposition Patient Disposition: Home, Self-Care Condition: Good Follow up Plan Follow up with: Thomas Meneses MD [Primary Care Provider] - 2 weeks Prescriptions/Medication Reconciliation: New nicotine 21 mg/24 hr Patch 24 Hour 21 mg transdermal DAILYP PRN (Reason: Nicotine Cravings) 14 Days Qty: 14 0RF cyclobenzaprine 7.5 mg tablet 7.5 mg PO TID PRN (Reason: muscle spasm) 3 Days Qty: 9 0RF naproxen 250 mg tablet 250 mg PO BID PRN (Reason: pain) 3 Days Qty: 9 0RF doxycycline hyclate 100 mg capsule 100 mg PO BID Qty: 20 0RF Continued omeprazole 40 mg capsule,delayed release(DR/EC) 40 mg PO DAILY Patient Comments: TAKE 1 CAPSULE BY MOUTH DAILY tizanidine 2 mg tablet 2 mg PO BIDP PRN (Reason: Muscle Spasm) metoprolol succinate 25 mg tablet extended release 24 hr 12.5 mg PO DAILY levocetirizine [Xyzal] 5 mg tablet 5 mg PO DAILY Entresto 24-26 mg tablet 1 tab PO BID Discontinued amoxicillin-pot clavulanate 875-125 mg tablet 1 tab PO BID Problem Reconciliation Problems Reviewed?: Yes Patient Discharge Instructions ACTIVITY: Ambulate as tolerated DIET: continue same diet Patient Instructions: DI for Cellulitis -- Adult Providers Primary Care Provider: Thomas Meneses Admit Provider: Hans Bauer Attending Provider: Hans Bauer
--- NOTE | 2023-12-21 10:18 | HMH.PTEV ---
Physical Therapy Evaluation Rehab PT IP Evaluation Start: 12/21/23 09:14 Freq: ONCE Status: Active Protocol: Document 12/21/23 10:13 WENDI (Rec: 12/21/23 10:18 WENDI [id number]) Subjective/History History History 43 yowm adm to [facility] for cellulitis of the R UE after dog bite that occured ~ 5 days ago. Cellulitis is being well controlled with IV abx. Pt now c/o L shoulder pain which began after the same incident when he was bitten as he fell into a wall. Pain much worse this am. He is generally independent with all mobility and ADLs prior to adm. Subjective Subjective Pain in L shoulder has worsened sine admission, possibly due to less pain from is R UE cellulitis. New diagnosis of cancer in past 12 No months? Rehab PT IP Eval Objective Appearance Patient Behavior Appropriate Patient Orientation Person,Place,Time Difficulty following instructions none Speech Pattern Clear Ambulation Patient Able to Ambulate Yes Ambulation Observation IP General Gait Pattern Observation No Deviations/Normal Ambulation Distance (feet) 30 Ambulation Assistive Device None Ambulation Ability Independent Balance Ability to Arise Able, w/o using arms Sitting Balance Steady, safe Standing Balance Narrow stance w/o support Dynamic Sitting Balance Ability Normal Dynamic Standing Balance Ability Normal Transfers Bed Transfer Ability Independent Chair Transfer Ability Independent Sit to Stand Bed Transfer Ability Independent Sit to Stand Chair Transfer Ability Independent Pain Left Arm Pain Intensity 9 ROM All Extremities PT ROM Status WFL MMT LUE PT MMT ABN Abnormal MMT Grade SHLD grossly 3/5 with pain Rehab PT IP prob,goals,plan Problems Date of Evaluation: 12/21/23 Discharge Plan PT Discharge Plan No current needs for inpatient therapy services. Recommend outpatient PT/OT for shoulder pain and stiffness as needed. Eval Complexity Eval Charge Codes 22140 - High Complexity PHYSICIAN CERTIFICATION: I certify the specified therapy services for [facility] [place] are required, authorized, and reviewed every 30 days.
--- NOTE | 2023-12-21 10:52 | P.CONPHA_ITS ---
Pharmacy Intervention Comments: DISCHARGE MEDICATION COUNSELING PROVIDED. DISCUSSED STOPPING AUGMENTIN AND STARTING THE FOLLOWING: -NICOTINE PATCH (FOR SMOKING CESSATION, DAILY, REMOVE OLD PATCH BEFORE PLACING NEW ONE, ROTATE APPLICATION SITES, IRRITATION POSSIBLE, REMOVE PRIOR TO MRI/CT IMAGING TO AVOID BOYLE) -DOXYCYCLINE (ANTIBIOTIC, TWICE DAILY, TAKE WITH FOOD, N/V/D POSSIBLE) -NAPROXEN (FOR PAIN, TWICE DAILY NEEDED, UPSET STOMACH, HEADACHE POSSIBLE) -CYCLOBENZAPRINE (MUSCLE RELAXER, THREE TIMES DAILY NEEDED, SEDATION, DI ZZINESS, DRY MOUTH POSSIBLE) PATIENT VERBALIZED NO QUESTIONS AT THIS TIME.
--- NOTE | 2023-12-22 12:55 | CARE MANAGER ---
CM called and spoke with patient regarding recent discharge. Patient went to scheduled f/u appt this morning, and has started new medication. No concerns voiced at time of call.
== END 2023-12-21 11:05 | disposition home or self-care (01) ==
LOC: ER 18:09 → 2ND 20:15
PROVIDERS: Nurse Practitioner Family; Admitting Provider Internal Medicine Adolescent Medicine; Emergency Provider Student in an Organized Health Care Education/Training Program; PCP Internal Medicine Adolescent Medicine; Visit Provider Internal Medicine Adolescent Medicine
DX: L03.113 Cellulitis of right upper limb (principal); W54.0XXA Bitten by dog, initial encounter; F17.210 Nicotine dependence, cigarettes, uncomplicated; I42.8 Other cardiomyopathies; Z79.899 Other long term (current) drug therapy; I50.9 Heart failure, unspecified; Z86.16 Personal history of COVID-19
CPT/HCPCS: 36415; 80053; 83605; 83735; 85025; 85651; 86140; 87040; 97163; 99285; G0378; J2543

== ENCOUNTER 2024-01-01 14:28 | Outpatient (POV) | payer OTHER, SELFPAY ==
--- NOTE | 2024-01-01 14:32 | EXP.PAIN.OV ---
HPI Data of Consult Patient: new to practice Consult date: 01/01/24 Requesting Physician: Sarah Greer APRN Primary Care Provider: Thomas Meneses MD Consult Narrative Reason for consult: Neck pain, headache, left shoulder pain History of present illness: Mr. East is a 43 year old male who presents today as a new patient. He is a referral from Dr. Rodriguez's office. Today he rates his pain a 7 out of 10. Patient states his pain is all at his neck with radiating symptoms causing headache. Patient states that he is also experiencing shoulder pain along the left side related to a recent dog attack. 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 He does describe his pain as a aching, throbbing sensation with sharp stabbing pains on occasion. He also states he frequently has a dull pressure in the back of his head. He states this has been going on for years related to the neck and headache symptoms and progressively worsened over time. Patient states he has tried [id number] Tylenol and ibuprofen along with heat and ice and topicals with minimal relief. Patient has had physical therapy in the past and chiropractor therapy with minimal improvement. He does state that he is starting back physical therapy on January 04. Patient does state he has very limited range of motion due to the pain and it does interfere with his ability perform activities of daily living such as cooking and cleaning or even simple ambulation. Patient states that increased walking seems to worsen his pain symptoms. Patient does also state he has a previous history of back pain related to bulging disc. Patient states he has recently had an x-ray of his cervical spine done at his chiropractor office back last year. He denies any advanced imaging. Patient has significant health history including heart related problems such as his heart gets to going to fast and skips a beat. He is on Entresto twice a day for this. Patient is not currently on any scheduled medications. His Aneudy has been reviewed and is appropriate. CC: Sarah Greer APRN [facility] Disclaimer: The information contained in this section may have been updated after the patient was seen, as this information can be updated by other users. Medical History (Updated 01/01/24 @ 15:51 by Sarah Greer APRN) Abdominal pain Atypical angina Atypical chest pain Bradycardia Bruising at injection site Cardiomyopathy Cellulitis Cellulitis of arm, right Cervicogenic headache Chest pain Chronic diarrhea Chronic headaches Chronic sinusitis Constipation Dehydration, mild Dizziness Dog bite Dysphagia Dyspnea Epistaxis Exocrine pancreatic insufficiency Failure of outpatient treatment Family history of ischemic heart disease Fatigue Globus sensation Hemorrhoid Hernia Hiatal hernia High grade dysplasia in colonic adenoma History of COVID-19 History of gastroesophageal reflux (GERD) Hx of pancreatitis Migraine Nausea alone Neck pain Non-cardiac chest pain Non-restorative sleep Nonischemic cardiomyopathy Orthopnea Pain in right arm Palpitations Side effect of medication Sinusitis Smoker Status post left heart catheterization (LHC) Systolic heart failure Tobacco dependence syndrome Vertigo Worsening headaches Surgical History History of cardiac cath History of esophagogastroduodenoscopy (EGD) Hx of colonoscopy Family History Other Cancer Diverticulitis Family history of hyperthyroidism Heart disease Social History (Updated 01/01/24 @ 15:25 by Marley Matute RN) Smoking Status: Current every day smoker tobacco type: cigarettes packs per day: 1 alcohol intake: never substance use type: denies use current occupational status: employed Travel in the last 8 weeks: None housing: house marital status: Review of Systems Review of Systems Review of systems:: pertinent systems reviewed and negative unless documented below Review of systems (narrative): Review of Systems: General: No recent weight changes, no fever, no sleep disturbances Respiratory: No cough, no shortness of air, no recurring pulmonary infections Cardiovascular/peripheral vascular: No chest pain, no palpitations, no edema, no shortness of breath Gastrointestinal: No new onset incontinence, normal bowel movements reported Genitourinary: No new onset incontinence Musculoskeletal: Neck pain, left shoulder pain, headache Psychiatric: [Normal mood/affect] Neurological: [Denies weakness in extremities], [denies balance issues] Meds Home Medications and Allergies Home Medications Medication Instructions Recorded Confirmed Type omeprazole 40 mg capsule,delayed 40 mg PO DAILY 12/13/23 01/01/24 History release levocetirizine 5 mg tablet (Xyzal) 5 mg PO DAILY Allergy Symptoms 12/20/23 01/01/24 History metoprolol succinate 25 mg 12.5 mg PO DAILY High Blood 12/20/23 01/01/24 History tablet,extended release 24 hr Pressure sacubitril 24 mg-valsartan 26 mg 1 tab PO BID Heart Failure 12/20/23 01/01/24 History tablet (Entresto) tizanidine 2 mg tablet 2 mg PO BIDP PRN Muscle Spasm 12/20/23 01/01/24 History cyclobenzaprine 7.5 mg tablet 7.5 mg PO TID PRN muscle spasm 3 12/21/23 01/01/24 Rx days #9 tabs doxycycline hyclate 100 mg capsule 100 mg PO BID #20 caps 12/21/23 01/01/24 Rx naproxen 250 mg tablet 250 mg PO BID PRN pain 3 days #9 12/21/23 01/01/24 Rx tabs nicotine 21 mg/24 hr daily 21 mg transdermal DAILYP PRN 12/21/23 01/01/24 Rx transdermal patch Nicotine Cravings 14 days #14 ea New Prescriptions to Start Prescriptions: Allergies Allergy/AdvReac Type Severity Reaction Status Date / Time No Known Allergies Allergy Verified 12/13/23 14:26 Objective Narrative: Physical Exam: General: Alert and oriented x3, no acute distress, pleasant and cooperative Lungs: Respirations even and unlabored, symmetrical chest expansion Eyes: PERRL Musculoskeletal: Flexion and extension of cervical [spine] somewhat guarded secondary to pain Neurological: Speech clear, no gross sensory deficit Additional findings Additional findings: FINDINGS: Bones/joints: No evidence of acute fracture or dislocation. No erosive disease. No significant degenerative change. Soft tissues: Normal. IMPRESSION: No acute bony injury. EDURE INFORMATION: Exam: XR Right Humerus Exam date and time: 12/17/2023 11:21 PM Age: 43 years old Clinical indication: Injury or trauma; Other: Dog bite; Work related; Arm, upper; Right TECHNIQUE: Imaging protocol: Radiologic exam of the right humerus. Views: 2 or more views. COMPARISON: US CA ARTERIAL PSEUDO RT UPPER 05/01/2023 2:50 PM FINDINGS: Bones/joints: No evidence of acute fracture or dislocation. No erosive disease. No significant degenerative change. Soft tissues: No radiopaque foreign body. No visible soft tissue gas. IMPRESSION: No acute bony injury. No radiopaque foreign body. Assessment and Plan *Assessment and plan (1) Neck pain: Problem Comment: Noncontributory cervical spine x-ray with flexion and extension Status: Acute Category: Medical Code(s): M54.2 - Cervicalgia (2) Headache: Status: Acute Qualifiers: Headache type: unspecified Headache chronicity pattern: chronic headache Intractability: intractable Qualified Code(s): R51.9 - Headache, unspecified; G89.29 - Other chronic pain Category: Medical Code(s): R51.9 - Headache, unspecified (3) Bilateral occipital neuralgia: Status: Acute Category: Medical Code(s): M54.81 - Occipital neuralgia (4) Left shoulder pain: Status: Acute Qualifiers: Chronicity: acute Qualified Code(s): M25.512 - Pain in left shoulder Category: Medical Code(s): M25.512 - Pain in left shoulder Plan Patient is experiencing chronic pain in his neck with worsening headaches. Patient did have limited range of motion of his cervical spine during today's visit. I have counseled the patient that he may benefit from bilateral occipital nerve blocks. Risk and benefits were discussed with patient and he would like to proceed forward with this plan of care. We will reach out to his chiropractor's office and get a copy of his x-ray imaging. I have counseled the patient that I will also order an MRI without contrast of his cervical spine. I will order the patient a compounded cream. Patient will be scheduled for bilateral occipital nerve blocks. Patient has been instructed to contact the clinic with any concerns before the next appointment. Dr. Younger has reviewed this note and agrees with this plan of care. This note was dictated using voice recognition software and make contain errors or omissions.
[2024-01-01 15:18] VITALS: BP 105/64; PULSE 63; RESP 18; O2SAT 99; BMI 19.3
== END 2024-01-01 23:59 ==
LOC: SC.PAIN 14:29
PROVIDERS: PCP Internal Medicine Adolescent Medicine; Visit Provider Nurse Practitioner Family
DX: M54.2 Cervicalgia (principal); R51.9 Headache, unspecified; G89.29 Other chronic pain; M54.81 Occipital neuralgia; M25.512 Pain in left shoulder
CPT/HCPCS: 99202; G0463

== ENCOUNTER 2024-01-10 14:36 | Outpatient (CLI) | payer OTHER, SELFPAY ==
[2024-01-10 15:41] LABS: Alanine Aminotransferase 35 U/L (12-78); Albumin Level 4.5 g/dl (3.5-5.0); Alkaline Phosphatase 110 U/L (38-126); Aspartate Amino Transferase 38 U/L (17-59); Bilirubin,Direct 0.2 mg/dl (0.0-0.4); Bilirubin,Indirect 0.2 mg/dL (0.0-0.9); Bilirubin,Total 0.4 mg/dl (0.2-1.3); Bilirubin,Unconjugated 0.2 mg/dL (0.0-1.1); Chol/HDL Ratio 3.6 (1-3.5); Cholesterol 198 mg/dl (140-200); HDL Cholesterol 55 mg/dl (40-60); Total Protein,Serum 7.1 g/dl (6.3-8.2); Triglycerides 155 mg/dl (30-150); VLDL Cholesterol 31 mg/dL (0-40)
[2024-01-10 15:52] LABS: Direct LDL Cholesterol 85.15 mg/dL (100-129)
== END 2024-01-10 23:59 ==
LOC: LAB 14:36
PROVIDERS: PCP Internal Medicine Adolescent Medicine; Visit Provider Nurse Practitioner
DX: E78.5 Hyperlipidemia, unspecified (principal); Z79.899 Other long term (current) drug therapy
CPT/HCPCS: 36415; 80061; 80076

== ENCOUNTER 2024-01-23 10:07 | Day surgery (SDC) | payer OTHER, SELFPAY ==
[2024-01-23 10:30] VITALS: BP 117/70; PULSE 55; RESP 18; TEMP 36.2; O2SAT 100; BMI 19.3
[2024-01-23 10:33] VITALS: O2SAT 98
[2024-01-23] MEDS: methylPREDNISolone ACETATE 80MG/ML VIAL 80 MG (10:34)
[2024-01-23] MEDS: LIDOCAINE 1% 5ML PF VIAL 5 ML (10:36)
[2024-01-23] MEDS: BUPIVACAINE 0.25% 10ML INJ 25 MG IJ (10:36)
[2024-01-23 10:40] VITALS: BP 107/71; PULSE 50; RESP 18; O2SAT 100
--- NOTE | 2024-01-23 10:47 | EXP.PAIN.PRO ---
Procedure Date: 01/23/24 Time: 10:25 Anesthesiologist:: Kd Rivera CRNA Complications:: None Pre-procedure Diagnosis:: Bilateral occipital neuralgia Post-procedure Diagnosis:: Same. Indications for Procedure:: Patient is a very pleasant 43-year-old male comes to clinic today for bilateral occipital nerve block. Patient describes posterior cervical neck pain as well as posterior occipital pain. He describes the pain as constant, dull, aching. He rates pain 7/10. Procedure Details:: Details of the procedure explained to the patient. The patient taken to the procedure room placed in sitting position. The area over the occipital and posterior cervical spine was cleansed using chlorhexidine's cleansing solution. Using a 25-gauge 1 inch needle the greater occipital nerve on the right was accessed with ease. After negative aspiration 6 cc of a solution containing 0.25% Marcaine +1% lidocaine and 20 mg of Depo-Medrol was injected. The same procedure was carried over the left occipital nerve. Patient tolerated procedure without difficulty. There are no complications. Plan and Disposition:: Patient was discharged without incident.
== END 2024-01-23 10:40 | disposition home or self-care (01) ==
PROVIDERS: PCP Internal Medicine Adolescent Medicine; Visit Provider Nurse Anesthetist, Certified Registered
DX: M54.81 Occipital neuralgia (principal)
CPT/HCPCS: 64405; J1010

== ENCOUNTER 2024-02-14 13:25 | Outpatient (POV) | payer OTHER, SELFPAY ==
[2024-02-14 13:26] VITALS: BP 137/86; PULSE 77; RESP 18; TEMP 36.9; O2SAT 95; BMI 19.3
--- NOTE | 2024-02-14 14:02 | A.OFFVIS_ITS ---
[facility] Pain Management SOAP Note Subjective:: Patient is a pleasant 44-year-old male who presents today for follow-up of bilateral occipital nerve block on 01/23/2024. Today he rates his pain a 3 out of 10. Patient denies any new trauma or injury from his last visit. He does state that he did not really notice much improvement with his neck symptoms or headaches following these injections. Patient states he has started physical therapy on his upper shoulder and states that after his first visit he did get a little dizzy. Patient was denied his MRI due to not having physical therapy. Patient was prescribed compounded cream and states this is helping. His Aneudy has been reviewed and is appropriate. Review of Systems: General: No recent weight changes, no fever, no sleep disturbances Respiratory: No cough, no shortness of air, no recurring pulmonary infections Cardiovascular/peripheral vascular: No chest pain, no palpitations, no edema, no shortness of breath Gastrointestinal: No new onset incontinence, normal bowel movements reported Genitourinary: No new onset incontinence Musculoskeletal: Neck pain, headache Psychiatric: [Normal mood/affect] Neurological: [Denies weakness in extremities], [denies balance issues] Objective:: Physical Exam: General: Alert and oriented x3, no acute distress, pleasant and cooperative Lungs: Respirations even and unlabored, symmetrical chest expansion Eyes: PERRL Musculoskeletal: Flexion and extension of cervical [spine] somewhat guarded secondary to pain, [antalgic gait noted] Neurological: Speech clear, no gross sensory deficit Assessment:: Neck pain, bilateral occipital neuralgia, headache Plan:: Patient continues to experience significant pain in his neck with increased headaches. I have discussed with patient due to his insurance denying the MRI for lack of having physical therapy I will order evaluation and treatment of his neck symptoms by physical therapy. Patient will return to clinic in 1 month for reevaluation of symptoms and plan of care. Patient has been instructed to contact the clinic with any concerns before the next appointment. Dr. Younger has reviewed this note and agrees with this plan of care. This note was dictated using voice recognition software and make contain errors or omissions. [facility] Disclaimer: The information contained in this section may have been updated after the patient was seen, as this information can be updated by other users. Medical History HLD (hyperlipidemia) Hernia Failure of outpatient treatment Cellulitis of arm, right Cellulitis Dog bite Cervicogenic headache Side effect of medication Chronic sinusitis Sinusitis Globus sensation Epistaxis Dehydration, mild Dysphagia Hx of pancreatitis History of COVID-19 Migraine History of gastroesophageal reflux (GERD) Hemorrhoid Fatigue Non-restorative sleep Bradycardia Neck pain Worsening headaches High grade dysplasia in colonic adenoma Exocrine pancreatic insufficiency Constipation Abdominal pain Smoker Nausea alone Chronic diarrhea Chronic headaches Chest pain Hiatal hernia Systolic heart failure Non-cardiac chest pain Orthopnea Nonischemic cardiomyopathy Status post left heart catheterization (LHC) Pain in right arm Bruising at injection site Tobacco dependence syndrome Family history of ischemic heart disease Atypical angina Cardiomyopathy Atypical chest pain Dizziness Dyspnea Palpitations Vertigo Surgical History History of esophagogastroduodenoscopy (EGD) Hx of colonoscopy History of cardiac cath Family History Other Cancer Diverticulitis Family history of hyperthyroidism Heart disease Social History Smoking Status: Current every day smoker tobacco type: cigarettes packs per day: 1 alcohol intake: never substance use type: denies use current occupational status: employed Travel in the last 8 weeks: None housing: house marital status:
== END 2024-02-14 23:59 ==
LOC: SC.PAIN 13:25
PROVIDERS: PCP Internal Medicine Adolescent Medicine; Visit Provider Nurse Practitioner Family
DX: M54.2 Cervicalgia (principal); M54.81 Occipital neuralgia; R51.9 Headache, unspecified
CPT/HCPCS: 99212; G0463

== ENCOUNTER 2024-03-04 11:00 | Outpatient (RCR) | payer OTHER, SELFPAY | END 2024-03-04 11:05 | disposition home or self-care (01) | LOC: OT 11:00 | PROVIDERS: Visit Provider Physician Assistant | DX: M25.512 Pain in left shoulder (principal) | CPT/HCPCS: 97010; 97014; 97110; 97140; 97164; 97166; 97530; G0283 ==

== ENCOUNTER 2024-03-14 14:53 | Outpatient (POV) | payer OTHER, SELFPAY ==
[2024-03-14 15:06] VITALS: BP 105/60; PULSE 66; RESP 16; O2SAT 100; BMI 19.4
--- NOTE | 2024-03-14 15:56 | A.OFFVIS_ITS ---
[facility] Pain Management SOAP Note Subjective:: Patient is a pleasant 44-year-old male who presents today for MRI denial. He rates his pain today as 4 out of 10. Patient denies any new trauma or injury. He does state that he is still in physical therapy for his neck and headache symptoms. He states he has been going once a week and about 3-4 visits now. He states he has not really noticed much improvement. Patient does state that he has been to the neurologist and they are ordering a machine to shock muscles. He denies any other changes. He is prescribed compounded cream. His Aneudy has been reviewed and is appropriate. Review of Systems: General: No recent weight changes, no fever, no sleep disturbances Respiratory: No cough, no shortness of air, no recurring pulmonary infections Cardiovascular/peripheral vascular: No chest pain, no palpitations, no edema, no shortness of breath Gastrointestinal: No new onset incontinence, normal bowel movements reported Genitourinary: No new onset incontinence Musculoskeletal: Neck pain, headache Psychiatric: [Normal mood/affect] Neurological: [Denies weakness in extremities], [denies balance issues] Objective:: RecallPhysical Exam: General: Alert and oriented x3, no acute distress, pleasant and cooperative Lungs: Respirations even and unlabored, symmetrical chest expansion Eyes: PERRL Musculoskeletal: Flexion and extension of cervical [spine] somewhat guarded secondary to pain, [antalgic gait noted] Neurological: Speech clear, no gross sensory deficit Assessment:: Occipital neuralgia, headache, neck pain Plan:: Patient is still continuing to go to physical therapy and his current MRI denial was based off that he needed a full 6 weeks of treatment. I have counseled the patient that we will follow-up with him in 1 month after his completion of the physical therapy and we will plan on resubmitting for the MRI. Patient agrees with this plan of care. Patient will return to clinic in 1 month for reevaluation of symptoms and plan of care. Patient has been instructed to contact the clinic with any concerns before the next appointment. Dr. Younger has reviewed this note and agrees with this plan of care. This note was dictated using voice recognition software and make contain errors or omissions. [facility] Disclaimer: The information contained in this section may have been updated after the patient was seen, as this information can be updated by other users. Medical History (Updated 03/11/24 @ 15:33 by Carrie Rodriguez MD) Cervicogenic headache HLD (hyperlipidemia) Hernia Failure of outpatient treatment Cellulitis of arm, right Cellulitis Dog bite Side effect of medication Chronic sinusitis Sinusitis Globus sensation Epistaxis Dehydration, mild Dysphagia Hx of pancreatitis History of COVID-19 Migraine History of gastroesophageal reflux (GERD) Hemorrhoid Fatigue Non-restorative sleep Bradycardia Neck pain Worsening headaches High grade dysplasia in colonic adenoma Exocrine pancreatic insufficiency Constipation Abdominal pain Smoker Nausea alone Chronic diarrhea Chronic headaches Chest pain Hiatal hernia Systolic heart failure Non-cardiac chest pain Orthopnea Nonischemic cardiomyopathy Status post left heart catheterization (LHC) Pain in right arm Bruising at injection site Tobacco dependence syndrome Family history of ischemic heart disease Atypical angina Cardiomyopathy Atypical chest pain Dizziness Dyspnea Palpitations Vertigo Surgical History History of esophagogastroduodenoscopy (EGD) Hx of colonoscopy History of cardiac cath Family History Other Cancer Diverticulitis Family history of hyperthyroidism Heart disease Social History Smoking Status: Current every day smoker tobacco type: cigarettes packs per day: 1 alcohol intake: never substance use type: denies use current occupational status: other Travel in the last 8 weeks: None housing: house marital status:
== END 2024-03-14 23:59 | disposition home or self-care (01) ==
LOC: SC.PAIN 14:54
PROVIDERS: PCP Internal Medicine Adolescent Medicine; Visit Provider Nurse Practitioner Family
DX: M54.81 Occipital neuralgia (principal); R51.9 Headache, unspecified; M54.2 Cervicalgia
CPT/HCPCS: 99212; G0463

== ENCOUNTER 2024-03-28 14:00 | Outpatient (RCR) | payer OTHER, SELFPAY ==
--- NOTE | 2024-02-22 09:12 | HMH.PTOPEV ---
PT Outpatient Evaluation Rehab PT Outpatient Evaluation Start: 02/22/24 07:54 Freq: Status: Active Protocol: Document 02/22/24 07:54 KARIME (Rec: 02/22/24 09:12 KARIME [id number]) E-signed By Sarah Noe, PT Outpatient Therapy Subjective History Subjective History Pt is a 44 y/o male who reports chronic neck pain for 20 years. Pt reports initial injury while lifting parts at [employer] injurying his neck and low back. Pt reports neck pain and worsening headaches since . Pt reports bilateral R>L neck and occipital pain/ tightness. Pt reports pain often refers up the back of his head described as pressure with random sharp shooting pains. Pt reports he experiences headaches every other day with increased activity that improve only with sleep and taking Ibuprofen. Pt denies light/ noise sensitivity, nausea/ vomiting, dizziness, fevers or night sweats. Pt denies distal UE symptoms or numbness /tingling with exception of a L shoulder injury due to getting attacked by a dog at work, states he is currently seeing OT for this. 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 Pt reports he had a bilateral occipital nerve block on 01/23/24 which he states did not improve his symptoms, states he had increased pressure for the next few days then pain/ symptoms returned to baseline. Work: [employer] Medical History: Hyperlipidemia, Hernia, GERD, Vertigo, Bradycardia, Systolic heart failure, Palpitations, Dyspnea Posture: forward head posture and increased thoracic kyphosis with shoulders internally rotated New diagnosis of cancer in past 12 No months? Chief Complaint Pain,Stiff Symptom Type Ache,Throb,Sharp,Dull,Stabbing Symptoms Relieved By Rest/Positioning,OTC Meds Symptoms Aggravated By Sitting,Physical Activity, Lifting Prior Functional Limitations None Current Functional Limitations Lifting,Sitting Symptom Description Constant but Variable Level of pain today (0-10) 3 Pain scale - at its best (0-10) 3 Pain scale - at its worst (0-10) 7 Cervical Eval Palpation Cervical Muscles R Suboccipital,L Suboccipital, R Upper Trapezius,L Upper Trapezius Cervical/Thoracic Palpation Findings Tenderness Flexibility Deficits Upper Trapezius Muscle Length (R) Moderate Tightness,(L) Moderate Tightness Levaetor Scapulae Muscle Length (R) Moderate Tightness,(L) Moderate Tightness Scalene Group Muscle Length (R) Mild Tightness,(L) Mild Tightness Pectoralis Major Muscle Length (R) Mild Tightness,(L) Mild Tightness Pectoralis Minor Muscle Length (R) Mild Tightness,(L) Mild Tightness Passive Joint Mobility Cervical PIVM Dec: R C4/5 L C4/5 R C5/6 L C5/6 R C6/7 L C6/7 AROM Cervical Spine Extension Active Range of 45 Motion (degrees) Cervical Spine Flexion Active Range of 45 Motion (degrees) Cervical Spine Right Lateral Flexion 45 Active Range of Motion (degrees) Cervical Spine Left Lateral Flexion 45 Active Range of Motion (degrees) Cervical Spine Right Rotation Active 70 Range of Motion (degrees) Cervical Spine Left Rotation Active 75 Range of Motion (degrees) MMT Bilateral Deltoid (C5) 5 Normal Biceps Brachii Strength Grade 5 Normal Wrist Extension Strength Grade 5 Normal Triceps Brachii Strength Grade 5 Normal Wrist Flexion Strength Grade 5 Normal Extensor Pollicis Longus Strength Grade 5 Normal Finger Abduction Strength Grade 5 Normal Altered Sensation Comment equal and intact to light touch sensation bilaterally Special Test C-Spine Foraminal Compression ([place]) Negative Left,Negative Right Test C-spine Verterbral Accessory Movements Central P/A [place],Right P/A that Elicit Symptoms [place] C-Spine Foraminal Distraction Test Positive Shoulder/Elbow Eval Shoulder Objective Measurements Shoulder MMT Bilateral Lower Trapezius Strength Grade 4- Good- Middle Trapezius Strength Grade 4- Good- Serratus Anterior Strength Grade 4 Good Upper Trapezius/Levator Scapulae 4 Good Shoulder Extension Strength Grade 4 Good Elbow Objective Measurements Neck Disability Index Neck Disability Index Section 1: Pain Intensity The pain is very mild at moment Section 2: Personal Care (washing, I can look after myself dressing, etc.) normally without causing extra pain Section 3: Lifting I can lift heavy weights without extra pain Section 4: Reading I can read as much as I want to with no pain in my neck Section 5: Headaches I have moderate headaches, which come frequently Section 6: Concentration I can concentrate fully when I want to with no difficulty Section 7: Work I can do as much work as I want to Section 8: Driving I can drive my car without any neck pain Section 9: Sleeping I have no trouble sleeping Section 10: Recreation I am able to engage in all my recreation activities with some pain in NDI Score 5 Outpatient Therapy Assessment Impairments Problems/Impairmments Palpation Tenderness,Impaired Range of Motion,Impaired Strength,Impaired Sitting, Impaired Lifting,Impaired Work Activities,Subjective C/O Pain,Impaired Self Care/Self Management Prognosis Rehab Potential Good Clinical Impression Consistent with Diagnosis Yes Short Term Goals Number of Weeks 3 Improve Tolerance to Work Activities Yes: report ability to work a half of a shift with pain 3/ 10 or less Decrease Subjective C/O Pain Yes: Improve pain/headache intensity at worst to 5/10 to improve overall QOL Improve Self Care/Self Management Yes Patient to be Ind w/ HEP Yes Custodial Goals Number of Weeks 6 Decreased Palpation Tenderness Yes: 0-1/4 TTP of suboccipital , UT/LS mm, C4-C7 SP/TP Increase Range of Motion Yes: Improve cervical LF AROM to WNL Increase Strength Yes: Improve scap strength to 4+/5 grossly to assist with postyre/function Improve Tolerance to Work Activities Yes: report ability to work a full shift with pain 3/10 or less Decrease Subjective C/O Pain Yes: Improve pain/headache intensity at worst to 3/10 to improve overall QOL Patient to be Ind w/ Advanced HEP Yes Outpatient Therapy Plan of Care Treatment Plan May Include Therapeutic Exercise Including Home Yes Exercise Program Manual Therapy Techniques Yes Neuromuscular Re-education Yes Therapeutic Activities to Return to Yes Previous Functional/Work Level ADL/Self Care Education Yes Mechanical Traction Yes Dry Needling Yes Thermal Modalities Yes Electrical Stimulation Yes Ultrasound/Phonophoresis Yes Iontophoresis Yes Massage Yes Eval/Re-Eval Yes Frequency Times per week 2 Duration Number of Weeks 4-6 Addendums This patient is a candidate for social No or vocational rehab? Patient/Guardian verbally acknowledges Yes understanding of treatment program and consents to further treatment? Patient/Guardian verbally acknowledges Yes understanding of diagnosis, prognosis and goals for treatment? Eval Complexity PT Charges 60282 - Low Complexity PHYSICIAN CERTIFICATION: I certify the specified therapy services for Mario Alberto East are required, authorized, and reviewed every 30 days.
--- NOTE | 2024-03-21 17:59 | HMH.RHREAS ---
Rehab Reassessment Rehab OP Re-assessment Start: 02/22/24 07:54 Freq: Status: Active Protocol: Document 03/21/24 16:59 KARIME (Rec: 03/21/24 17:59 KARIME [id number]) E-signed By Sarah Noe, PT Neck Disability Index Neck Disability Index Section 1: Pain Intensity The pain is very mild at moment Section 2: Personal Care (washing, I can look after myself dressing, etc.) normally without causing extra pain Section 3: Lifting I can lift heavy weights without extra pain Section 4: Reading I can read as much as I want to with slight pain in my neck Section 5: Headaches I have moderate headaches, which come frequently Section 6: Concentration I can concentrate fully when I want to with no difficulty Section 7: Work I can do as much work as I want to Section 8: Driving I can drive my car without any neck pain Section 9: Sleeping I have no trouble sleeping Section 10: Recreation I am able to engage in all my recreation activities with some pain in NDI Score 6 Rehab Re-assessment Subjective Subjective Pt reports he feels 80% improved since starting PT. Pt reports pain at worst as 7/10 on VAS within the past week and 2/10 pain on average. Pt reports less frequent and intense headaches since starting PT. Pt reports this occurs after periods of prolonegd looking down such as with reading and at work. Pt reports he recently saw his MD and was given a TENS unit. Pt reports he is also scheduled to have shoulder surgery on April 08. Pt reports compliance with HEP. Objective Objective Notes Palpation: C2-C5 R SP and TP, UT/LS mm (trigger point noted in R UT) Cervical AROM: 45 flex, ext 45 , LF 50, rRot 70, Lrot 80 Assessment Progress Assessment Progressing as Expected Assessment Notes Pt has attended 5 PT visits consisting of aerobic exercise , cervical mobility/stretching , cervical/scapular strengthening, manual therapy and modalities with good tolerance. Pt demonstrated improved lateral flexion AROM and subjective report of headache frequency/intensity this date compared to the initial evaluation. Pt continues to demonstrate decreased R rotation AROM and tenderness to palpation of the R cervical facet joints and upper trapezius muscle. Overall, the pt would continue to benefit from skilled PT to further improve pain severity , cervical AROM, scapular strengthening and functional activity tolerance to improve overall QOL. Patient goals met ST/4 Goals Not Met LTG Revised Goals n/a Plan Plan Continue initial POC Frequency of Therapy 2x/week Duration of therapy 2-4 more weeks Time and Billing Re-Eval Time 12 Re-Eval Billing Units 1 PHYSICIAN CERTIFICATION: I certify the specified therapy services for Mario Alberto Adonay Cruzito are required, authorized, and reviewed every 30 days.
== END 2024-03-28 15:00 | disposition home or self-care (01) ==
LOC: PT 14:00
PROVIDERS: Visit Provider Nurse Practitioner Family
DX: M54.2 Cervicalgia (principal)
CPT/HCPCS: 97010; 97012; 97014; 97110; 97140; 97163; 97164; 97530; G0283

== ENCOUNTER 2024-06-20 16:58 | Outpatient (CLI) | payer OTHER, SELFPAY ==
--- NOTE | 2024-06-20 17:04 | XR_ITS ---
PROCEDURE INFORMATION: Exam: XR Left Elbow Exam date and time: 06/20/2024 5:05 PM Age: 44 years old Clinical indication: Pain; Elbow; Left TECHNIQUE: Imaging protocol: Radiologic exam of the left elbow. Views: 3 or more views. COMPARISON: CR XR SHOULDER LT MIN 2V 12/17/2023 11:23 PM FINDINGS: Bones/joints: Normal. No acute fracture identified. Soft tissues: Normal. IMPRESSION: No acute findings.
== END 2024-06-20 23:59 | disposition home or self-care (01) ==
LOC: RAD 16:59
PROVIDERS: PCP Internal Medicine Adolescent Medicine; Visit Provider Physician Assistant
DX: M25.522 Pain in left elbow (principal)
CPT/HCPCS: 73080

== ENCOUNTER 2024-07-22 10:42 | Day surgery (SDC) | payer OTHER, SELFPAY ==
[2024-07-16 15:27] VITALS: BMI 19.4
[2024-07-22 10:55] VITALS: BP 112/71; PULSE 68; RESP 18; TEMP 36.3; O2SAT 97
[2024-07-22] MEDS: LACTATED RINGERS 1000ML 1,000 ML 25 ML IV (11:00)
--- NOTE | 2024-07-22 11:12 | EXP.ANES.CKL ---
[facility] Disclaimer: The information contained in this section may have been updated after the patient was seen, as this information can be updated by other users. 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 Abdominal pain Smoker Nausea alone Chronic diarrhea Chronic headaches Hiatal hernia Systolic heart failure Non-cardiac chest pain Orthopnea Nonischemic cardiomyopathy Status post left heart catheterization (LHC) Pain in right arm Bruising at injection site Tobacco dependence syndrome Family history of ischemic heart disease Atypical angina Cardiomyopathy Atypical chest pain Dizziness Dyspnea Palpitations Vertigo Surgical History H/O shoulder surgery History of esophagogastroduodenoscopy (EGD) Hx of colonoscopy History of cardiac cath Family History Other Cancer Diverticulitis Family history of hyperthyroidism Heart disease Social History Smoking Status: Former smoker tobacco type: cigarettes packs per day: 1 alcohol intake: never substance use type: denies use current occupational status: other Travel in the last 8 weeks: None housing: house marital status: [facility] Anesthesia Checklist Patient Identification Patient Identification: Arm Band and Verbal (Name & ) Structural Data Admitted From: Home Planned Operative Procedure/s: EGD Consent for Planned Operative Procedure(s) Verified: Yes Verified Documents: Surgical Consent and History and Physical NPO Status Verified Time NPO: 00:00 Additional verifications Anesthesia Reactions: No Hx Blood Transfusions: No Blood Transfusion Reaction: No Airway Assessment Mallampati Score:: Class II C-Spine Mobility Assessed: Yes TMJ Mobility Assessed: Yes Dentition: Dentures-poor fitting (Removed upper dentures) Neurological Assessment Level of Consciousness: Awake Hx Seizures: No Numbness or tingling in extremities: No Anesthesia Plan Anesthesia Risk discussed: Yes Anesthesia Plan: Verified ASA Class: III Anesthesia Type: MAC
[2024-07-22 12:12] VITALS: O2SAT 100
[2024-07-22 12:35] VITALS: BP 96/62; PULSE 78; RESP 16; TEMP 36.6; O2SAT 93
--- NOTE | 2024-07-22 12:35 | HMH.PROCNOTE ---
[facility] Procedure Note Date: 07/22/24 Time: 12:36 Procedure Note:: Upper Endoscopy Procedure Report: Esophagogastroduodenoscopy with cold biopsies and TTS balloon dilation Endoscopost: Miguel Patel II, MD Referring Physician: Thomas Meneses M.D. Date of Procedure: July 22, 2024 Equipment: Olympus GIF 190 standard upper endoscope Sedation: MAC sedation Indications: Mr. East is a 44-year-old gentleman with a history of nausea and dyspepsia. He does take omeprazole. He reports bloating, belching, nausea and early satiety. He reports no dysphagia. He has regular bowel movements. His symptoms are not fully controlled with omeprazole. He reports no weight loss. Procedure: Prior to the procedure, a history and physical exam was performed, and patient's medications and allergies were reviewed. The risks, benefits and alternatives of the sedation and procedure were discussed with the patient. All questions were answered and informed consent was obtained. The patient was brought to the procedure room. Patient identification and proposed procedure were verified by the physician and the nurse. The patient was placed in a left lateral decubitus position and the scope was passed under direct vision. Throughout the procedure, the patient's blood pressure, pulse, and oxygen saturations were monitored continuously. The upper GI endoscopy was accomplished without difficulty. The patient tolerated the procedure well. Findings: The scope was passed directly into the upper esophagus and advanced to the third portion of the duodenum. The post bulbar duodenum and duodenal bulb were normal with normal mucosa and conniventes. The scope was withdrawn through a normal duodenal bulb and pylorus into the stomach. There was some mild reactive gastropathy of the prepyloric antrum and there was some very mild chronic gastritis of the body and fundus. Biopsies were obtained along the lesser curvature and antrum. Upon retroflexion there was a very small sliding 1 to 2 cm hiatal hernia. 2 biopsies were taken in the antrum and along the lesser curvature for histology to rule out gastritis and/or H pylori. The scope was then withdrawn into the esophagus. There was no evidence of reflux esophagitis or Green's. There was no Schatzki's ring. There were tertiary contractions and evidence of mild esophageal dysmotility. The entire esophagus was dilated to 60 [place] 20 mm with a TTS hydrostatic balloon. The remainder of the esophageal mucosa was normal. Impression: 1. Nonerosive GERD with mild esophageal dysmotility and very small sliding 1 to 2 cm hiatal hernia 2. Mild reactive gastropathy of prepyloric antrum and mild chronic gastritis Plan: The patient does have chronic functional dyspepsia. We will discuss additional dietary measures and treatment options. I will follow-up the biopsies.
[2024-07-22 12:45] VITALS: BP 93/59; PULSE 79; RESP 16; O2SAT 94
[2024-07-22 12:55] VITALS: BP 93/61; PULSE 75; RESP 18; O2SAT 97
[2024-07-22 13:02] VITALS: BP 97/61; PULSE 82; RESP 16; O2SAT 98
== END 2024-07-22 13:15 | disposition home or self-care (01) ==
PROVIDERS: PCP Internal Medicine Adolescent Medicine; Visit Provider Internal Medicine Gastroenterology
PROC: 0DJ08ZZ Inspection of Upper Intestinal Tract, Via Natural or Artificial Opening Endoscopic (ICD-10-PCS; CPT 43235; principal; 2024-07-22 12:00)
DX: R11.0 Nausea; R14.0 Abdominal distension (gaseous); K21.9 Gastro-esophageal reflux disease without esophagitis; K44.9 Diaphragmatic hernia without obstruction or gangrene; K31.9 Disease of stomach and duodenum, unspecified; K29.50 Unspecified chronic gastritis without bleeding
CPT/HCPCS: 43239; 43249; C1726; J7120

== ENCOUNTER 2024-09-09 14:00 | Outpatient (RCR) | payer OTHER, SELFPAY | END 2024-09-09 23:59 | disposition home or self-care (01) | LOC: OT 14:00 | PROVIDERS: Visit Provider Physician Assistant | DX: M25.512 Pain in left shoulder (principal); Z98.890 Other specified postprocedural states | CPT/HCPCS: 97010; 97014; 97110; 97140; 97164; 97166; 97530; G0283 ==

== ENCOUNTER 2024-10-22 15:05 | Outpatient (CLI) | payer OTHER, SELFPAY ==
--- NOTE | 2024-10-22 15:11 | CA_ITS ---
APPROVED REPORT EXAM: Limited 2D Echocardiogram with contrast Public Housing Interviewer: Judy Cooper RVT Ht: 5 ft 7 in Wt: 133lbs BSA: 1.70 BP: 100/59 mmHg Indications: EF CHECK,HFrEF,EF OF 45% 03/28,HLD,PALPS Echo Enhancing Agent Indication: Endocardial border delineation Agent(s) / Amount(s) Used: Definity 2 cc M-Mode Dimensions RVDd 1.71 cm (0.9-2.6) LVDd 3.82 cm (3.5-5.7) LVDs 2.68 cm (3.5-5.7) IVSd 0.84 cm (0.6-1.1) PWd 0.70 cm (0.6-1.1) EF (Teich) 57.70% FS 29.80% EDV (Teich) 62.70 mL ESV (Teich) 26.50 mL Other Information Study Quality: Fair Conclusion This is a limited TTE to evaluate for LV systolic function. Limited windows were obtained. Ultrasound enhancing agent was administered. The left ventricle is normal in size. There is normal LV wall thickness. There is mild global hypokinesis present. LVEF is 45%. Compared to prior study from 03/2023, the LV systolic function is unchanged. Electronically signed by : Olga Sexton MD 10/24/2024 12:19:21
[2024-10-22] MEDS: DEFINITY US ECHO CONTRAST 2ML INJ 2 MG IV (15:52)
== END 2024-10-22 23:59 | disposition home or self-care (01) ==
LOC: RT 15:05
PROVIDERS: PCP Internal Medicine Adolescent Medicine; Visit Provider Internal Medicine
DX: R00.2 Palpitations (principal); I50.20 Unspecified systolic (congestive) heart failure
CPT/HCPCS: 93308; Q9957

== ENCOUNTER 2024-12-23 19:27 | Emergency (ER) | payer OTHER, SELFPAY ==
[2024-12-23] VITALS (7 sets, daily range): BP systolic 112–128; BP diastolic 70–83; PULSE 55–78; RESP 18–20; TEMP 37.1; O2SAT 98–100; BMI 19.3
--- NOTE | 2024-12-23 20:02 | PC.NURSE ---
CATHRYN Trinidad did straight stick for lab work. Sent to lab.
--- NOTE | 2024-12-23 20:47 | HMH.EDGENADL ---
Discharge Plan Disposition Patient Disposition: Home, Self-Care Condition: Good Prescriptions Prescriptions: New ondansetron 4 mg tablet,disintegrating 4 mg PO QID PRN (Reason: nausea and vomiting) Qty: 10 0RF No Action meclizine [Dramamine (meclizine)] 25 mg tablet 25 mg PO DAILY PRN (Reason: .) metoprolol succinate [Toprol XL] 50 mg tablet extended release 24 hr 50 mg PO DAILY Qty: 30 2RF omeprazole 40 mg capsule,delayed release(DR/EC) 40 mg PO DAILY Qty: 90 3RF ondansetron HCl 8 mg tablet 8 mg PO Q8H PRN (Reason: Nausea) acetaminophen 500 mg tablet 1,000 mg PO Q6H PRN (Reason: Pain) docusate sodium 250 mg capsule 250 mg PO BID PRN (Reason: Nausea And Vomiting) amitriptyline 10 mg tablet 10 mg PO HS Qty: 30 6RF valsartan 40 mg tablet 40 mg PO DAILY Qty: 30 2RF metoclopramide HCl 10 mg tablet 10 mg PO ACHS PRN (Reason: nausea and vomiting) Qty: 90 3RF Referrals Follow up/Referrals: Miguel Patel II, MD [Staff Physician] - See instructions Thomas Meneses MD [Primary Care Provider] - See instructions Activity Restrictions/Add. Instructions Additional Instructions/Restrictions: You been diagnosed with enteritis/duodenitis. Follow-up with your PCP within 48 hours for recheck. I have referred you to gastroenterology for follow-up as an outpatient. I have sent Zofran to your pharmacy. If you have inability to tolerate oral intake inability to pass stool increasing pain bloody bowel movements return to the ER. Clinical Impressions Clinical Impression: Enteritis Stand Alone Forms Stand Alone Forms: Work/School Release Instructions Patient Instructions: DI for Acute Abdominal Pain Print Language Print Language: Hebrew Discharge ED Provider: Mervin Dos Santos General Adult HPI <LIONEL Bello - Last Filed: 12/23/24 22:49> General Chief complaint: Abdominal Pain Stated complaint: abd pain right side Time Seen by Provider: 12/23/24 20:47 Mode of Arrival: Ambulatory Source of Information: Patient Limitations: No Limitations Description of Symptoms (Recalled from ER Triage Doc. by RN): Pt presents to ED for R sided abd pain that radiates toward his belly button. Pt states it hurts worse when he's moving and walking. Pt states pain is so intense sometimes that he feels nauseaous. Pt is A&O*4 and is present. Rates pain 5/10 sitting and 7/10 when walking. History of Present Illness HPI narrative: Patient presents for evaluation of right lower quadrant pain. Patient has had crampy right lower quadrant pain for the last 3 days. Patient states the pain has intensified and radiates towards the midline towards the umbilicus. He denies dysuria hematuria has had normal bowel and flatus. Is not intolerant of oral intake. He denies fever chills hemoptysis hematochezia melena nausea vomiting diarrhea. Related Data Home Medications ?Medication ?Instructions ?Recorded ?Confirmed meclizine 25 mg tablet (Dramamine 25 mg PO DAILY PRN . 01/10/24 12/23/24 (meclizine)) acetaminophen 500 mg tablet 1,000 mg PO Q6H PRN Pain 04/25/24 11/18/24 docusate sodium 250 mg capsule 250 mg PO BID PRN Nausea And 04/25/24 12/23/24 Vomiting ondansetron HCl 8 mg tablet 8 mg PO Q8H PRN Nausea 04/25/24 12/23/24 Previous Rx's ?Medication ?Instructions ?Recorded metoclopramide HCl 10 mg tablet 10 mg PO ACHS PRN nausea and 07/22/24 vomiting #90 tabs omeprazole 40 mg capsule,delayed 40 mg PO DAILY #90 caps 08/21/24 release amitriptyline 10 mg tablet 10 mg PO HS Chronic neck pain, 09/09/24 cervicogenic headache #30 tabs metoprolol succinate 50 mg 50 mg PO DAILY #30 tabs 10/09/24 tablet,extended release 24 hr (Toprol XL) valsartan 40 mg tablet 40 mg PO DAILY #30 tabs 11/18/24 ondansetron 4 mg disintegrating 4 mg PO QID PRN nausea and 12/23/24 tablet vomiting #10 tabs Allergies Allergy/AdvReac Type Severity Reaction Status Date / Time No Known Allergies Allergy Verified 11/18/24 13:43 [facility] <LIONEL Bello - Last Filed: 12/23/24 22:49> [facility] Disclaimer: The information contained in this section may have been updated after the patient was seen, as this information can be updated by other users. Medical History Exocrine pancreatic insufficiency HFrEF (heart failure with reduced ejection fraction) Chest pain Dysphagia Globus sensation Constipation Cervicogenic headache (Unknown) Unchanged with cyproheptadine and currently on tizanidine 2-4 mg po qhs with no improvement following PT and pain management trigger point injections. HLD (hyperlipidemia) (Unknown) Hernia Failure of outpatient treatment Cellulitis of arm, right Cellulitis Dog bite Side effect of medication Chronic sinusitis Sinusitis Epistaxis Dehydration, mild Hx of pancreatitis History of COVID-19 Migraine History of gastroesophageal reflux (GERD) Hemorrhoid Fatigue Home sleep study consistent with primary snoring Non-restorative sleep Bradycardia Resolved since self discontinuing all medications Neck pain Noncontributory cervical spine x-ray with flexion and extension, Bettr with PT, cervical traction collar and electrical stimulation Worsening headaches High grade dysplasia in colonic adenoma Abdominal pain Smoker Nausea alone Chronic diarrhea Chronic headaches Hiatal hernia Systolic heart failure Non-cardiac chest pain Orthopnea Nonischemic cardiomyopathy Status post left heart catheterization (LHC) Pain in right arm Bruising at injection site Tobacco dependence syndrome Family history of ischemic heart disease Atypical angina Cardiomyopathy Active follow-up with [facility] cardiology, cannot exclude headaches due to side effect of medications or hypotension Atypical chest pain Dizziness Dyspnea Palpitations Vertigo Surgical History H/O shoulder surgery History of esophagogastroduodenoscopy (EGD) Hx of colonoscopy History of cardiac cath Family History Other Cancer Diverticulitis Family history of hyperthyroidism Heart disease Social History Smoking Status: Current every day smoker tobacco type: cigarettes packs per day: 1 alcohol intake: never substance use type: denies use current occupational status: other Travel in the last 8 weeks: None housing: house marital status: Have you lived/traveled outside [place] in past 30 days?: No Contact w/someone who lives/traveled outside US past 30 days?: No Exposure to someone with infectious disease in past 14 days?: No Do you have a fever (greater than 100.4 F or 38 C)?: No Have you tested positive for COVID-19: No Exposed to someone with COVID-19 in past 14 days?: No Do you have a sore throat?: No Do you have a cough?: No Do you have any weakness?: No Do you have any diarrhea?: No Are you experiencing any unusual bleeding?: No Do you have any muscle aches/pain?: No Do you have any abdominal pain?: Yes Are you experiencing loss of taste or smell?: No Other Medical History Have you received the Flu Vaccine for this season: No Have you received the Pneumonia Vaccine: No <LIONEL Bello - Last Filed: 12/23/24 22:49> ROS Obtained: Yes Systems reviewed as appropriate & no additional complaints except as documented Physical Exam <LIONEL Bello - Last Filed: 12/23/24 22:49> General General appearance: alert and in no apparent distress Respiratory Respiratory exam: Present normal lung sounds bilaterally Cardiovascular Cardiovascular exam: Present regular rate Neurological Exam Neurological exam: Present alert and oriented X3 Medical Decision Making <LIONEL Bello - Last Filed: 12/23/24 22:49> Medical Records Medical records reviewed: Yes I reviewed the patient's medical records. Screening: Per USPSTF and CDC recommendations, given the prevalence of disease in our region, it is our hospital?s policy to screen for HIV and viral Hepatitis for all patients aged 18 and over and those with ongoing risk factors. Aneudy Inquiry Pt receiving controlled substance: No Vital Signs: 12/23/24 19:28 12/23/24 21:11 12/23/24 21:23 Temperature 98.7 F Temperature Source Temporal Artery Scan Pulse Rate 78 64 Pulse Rate [Left] 78 Respiratory Rate 18 Blood Pressure 127/79 112/83 Blood Pressure [Right Arm] 128/70 Blood Pressure Mean [Right Arm] 89 02 Sat by Pulse Oximetry 99 99 99 Oxygen Delivery Method Room Air Room Air Room Air 12/23/24 21:30 12/23/24 22:00 12/23/24 22:30 Temperature Temperature Source Pulse Rate 72 66 55 L Pulse Rate [Left] Respiratory Rate Blood Pressure 119/82 121/73 113/71 Blood Pressure [Right Arm] Blood Pressure Mean [Right Arm] 02 Sat by Pulse Oximetry 99 100 99 Oxygen Delivery Method Room Air Room Air Room Air 12/23/24 22:48 Temperature 98.7 F Temperature Source Oral Pulse Rate 62 Pulse Rate [Left] Respiratory Rate 20 Blood Pressure 113/71 Blood Pressure [Right Arm] Blood Pressure Mean [Right Arm] 02 Sat by Pulse Oximetry Oxygen Delivery Method Room Air Lab Data Lab results reviewed: Yes I reviewed the patient's lab results. Lab Results 12/23/24 20:05: WBC 5.6, RBC 4.67, Hgb 13.6 L, Hct 40.6 L, MCV 86.9, MCH 29.1, MCHC 33.5, RDW 12.5, Plt Count 181, MPV 11.8 H, Neut % (Auto) 61.6, Lymph % (Auto) 26.3, Divide % (Auto) 8.2, Eos % (Auto) 3.0, Baso % (Auto) 0.7, Neut # (Auto) 3.4, Lymph # (Auto) 1.5, Divide # (Auto) 0.5, Eos # (Auto) 0.2, Baso # (Auto) 0.0, Sodium 137, Potassium 4.0, Chloride 101, Carbon Dioxide 31 H, Anion Gap 9.0, BUN 13, Creatinine 1.00, Estimated Creat Clear 77, Estimated GFR 81, Est GFR ( Amer) 98, Glucose 92, Calcium 8.8, Total Bilirubin 0.4, AST 49, ALT 37, Alkaline Phosphatase 143 H, Total Protein 7.5, Albumin 4.4, Globulin 3.1, Albumin/Globulin Ratio 1.4, Lipase 78, HCV Ab DEUCE w/Rflx PCR Qn Negative, HIV Ag/Ab Combo Qual Negative 12/23/24 21:45: Urine Color Yellow, Urine Appearance Clear, Urine pH 8.0, Ur Specific [place] 1.015, Urine Protein Negative, Urine Glucose (UA) Negative, Urine Ketones Negative, Urine Blood Negative, Urine Nitrate Negative, Urine Bilirubin Negative, Urine Urobilinogen 0.2, Ur Leukocyte Esterase Negative, Urine WBC Occasional, Ur Squamous Epith Cells Occasional, Amorphous Sediment 1+, Urine Bacteria 1+ 12/23/24 20:05 12/23/24 20:05 Orders (Tests/Meds): ED MEDICATIONS Discontinued Medications Generic Name Dose Route Start Last Admin Trade Name Freq PRN Reason Stop Dose Admin Acetaminophen 1,000 mg 12/23/24 20:51 12/23/24 21:00 Acetaminophen 1,000mg/100ml Vial IV 12/23/24 20:52 1,000 mg ONCE ONE Administration Hydromorphone HCl 0.5 mg 12/23/24 20:51 12/23/24 21:00 Hydromorphone 2mg/Ml Syringe IV 12/23/24 20:52 0.5 mg ONCE ONE Administration Iopamidol 75 ml 12/23/24 21:17 12/23/24 21:18 Iopamidol-370 (76%);100ml Bottle IV 12/23/24 21:18 75 ml ONCE ONE Administration Ondansetron HCl 4 mg 12/23/24 20:51 12/23/24 21:01 Ondansetron 4mg/2ml Vial IV 12/23/24 20:52 4 mg ONCE ONE Administration Sodium Chloride 10 ml 12/23/24 21:17 12/23/24 21:18 Sodium Chloride 0.9% 10ml Syr (Rad Only) IV 01/22/25 21:16 10 ml NEEDED PRN Administration Maintain IV Site ORDERS Category Date Time Status CT abdomen pelvis w con Stat Cat Scan 12/23/24 20:51 Completed Complete Blood Count Auto Diff Stat Lab 12/23/24 20:05 Completed Comprehensive Metabolic Panel Stat Lab 12/23/24 20:05 Completed HIV Combo Routine Lab 12/23/24 20:05 Completed Hepatitis C Ab Qual. W/ RFX Routine Lab 12/23/24 20:05 Completed Lipase Stat Lab 12/23/24 20:05 Completed UA [Urinalysis and Microscopic] Stat Lab 12/23/24 21:45 Completed Medical Decision Narrative: In summary patient is a 44-year-old male who presents to the emergency department for evaluation of right lower quadrant pain. Patient is hemodynamically stable upon arrival, afebrile. Physical exam is remarkable for tenderness to the right lower quadrant with rebound tenderness but no guarding or rigidity. He is tender over McBurney's point. He has negative CVA tenderness on the right. Bowel sounds normal active.. Differential diagnosis includes appendicitis versus kidney stone versus colitis versus constipation etc. Initial workup will be conducted with hematologic labs CT scan abdomen pelvis. Initial interventions include crystalloid bolus Tylenol Zofran Toradol. Initial workup reviewed by me and his hematologic labs are nonactionable including normal white count with no left shift liver enzymes and my informal interpretation of his CT scan abdomen pelvis shows enteritis without evidence of perforation or abscess.. Upon repeat evaluation patient reported improvement in his pain after initial intervention and is tolerating p.o. intake.. Given this patient is appropriate for discharge with referral to gastroenterology for further workup, prescription for Zofran sent to his pharmacy and follow-up with his PCP within 48 hours for recheck. <Mervin Dos Santos MD - Last Filed: 12/23/24 23:34> Vital Signs: 12/23/24 19:28 12/23/24 21:11 12/23/24 21:23 Temperature 98.7 F Temperature Source Temporal Artery Scan Pulse Rate 78 64 Pulse Rate [Left] 78 Respiratory Rate 18 Blood Pressure 127/79 112/83 Blood Pressure [Right Arm] 128/70 Blood Pressure Mean [Right Arm] 89 02 Sat by Pulse Oximetry 99 99 99 Oxygen Delivery Method Room Air Room Air Room Air 12/23/24 21:30 12/23/24 22:00 12/23/24 22:30 Temperature Temperature Source Pulse Rate 72 66 55 L Pulse Rate [Left] Respiratory Rate Blood Pressure 119/82 121/73 113/71 Blood Pressure [Right Arm] Blood Pressure Mean [Right Arm] 02 Sat by Pulse Oximetry 99 100 99 Oxygen Delivery Method Room Air Room Air Room Air 12/23/24 22:48 Temperature 98.7 F Temperature Source Oral Pulse Rate 62 Pulse Rate [Left] Respiratory Rate 20 Blood Pressure 113/71 Blood Pressure [Right Arm] Blood Pressure Mean [Right Arm] 02 Sat by Pulse Oximetry Oxygen Delivery Method Room Air Lab Data Lab Results 12/23/24 20:05: WBC 5.6, RBC 4.67, Hgb 13.6 L, Hct 40.6 L, MCV 86.9, MCH 29.1, MCHC 33.5, RDW 12.5, Plt Count 181, MPV 11.8 H, Neut % (Auto) 61.6, Lymph % (Auto) 26.3, Divide % (Auto) 8.2, Eos % (Auto) 3.0, Baso % (Auto) 0.7, Neut # (Auto) 3.4, Lymph # (Auto) 1.5, Divide # (Auto) 0.5, Eos # (Auto) 0.2, Baso # (Auto) 0.0, Sodium 137, Potassium 4.0, Chloride 101, Carbon Dioxide 31 H, Anion Gap 9.0, BUN 13, Creatinine 1.00, Estimated Creat Clear 77, Estimated GFR 81, Est GFR ( Amer) 98, Glucose 92, Calcium 8.8, Total Bilirubin 0.4, AST 49, ALT 37, Alkaline Phosphatase 143 H, Total Protein 7.5, Albumin 4.4, Globulin 3.1, Albumin/Globulin Ratio 1.4, Lipase 78, HCV Ab DEUCE w/Rflx PCR Qn Negative, HIV Ag/Ab Combo Qual Negative 12/23/24 21:45: Urine Color Yellow, Urine Appearance Clear, Urine pH 8.0, Ur Specific [place] 1.015, Urine Protein Negative, Urine Glucose (UA) Negative, Urine Ketones Negative, Urine Blood Negative, Urine Nitrate Negative, Urine Bilirubin Negative, Urine Urobilinogen 0.2, Ur Leukocyte Esterase Negative, Urine WBC Occasional, Ur Squamous Epith Cells Occasional, Amorphous Sediment 1+, Urine Bacteria 1+ Orders (Tests/Meds): ED MEDICATIONS Discontinued Medications Generic Name Dose Route Start Last Admin Trade Name Freq PRN Reason Stop Dose Admin Acetaminophen 1,000 mg 12/23/24 20:51 12/23/24 21:00 Acetaminophen 1,000mg/100ml Vial IV 12/23/24 20:52 1,000 mg ONCE ONE Administration Hydromorphone HCl 0.5 mg 12/23/24 20:51 12/23/24 21:00 Hydromorphone 2mg/Ml Syringe IV 12/23/24 20:52 0.5 mg ONCE ONE Administration Iopamidol 75 ml 12/23/24 21:17 12/23/24 21:18 Iopamidol-370 (76%);100ml Bottle IV 12/23/24 21:18 75 ml ONCE ONE Administration Ondansetron HCl 4 mg 12/23/24 20:51 12/23/24 21:01 Ondansetron 4mg/2ml Vial IV 12/23/24 20:52 4 mg ONCE ONE Administration Sodium Chloride 10 ml 12/23/24 21:17 12/23/24 21:18 Sodium Chloride 0.9% 10ml Syr (Rad Only) IV 01/22/25 21:16 10 ml NEEDED PRN Administration Maintain IV Site ORDERS Category Date Time Status CT abdomen pelvis w con Stat Cat Scan 12/23/24 20:51 Completed Complete Blood Count Auto Diff Stat Lab 12/23/24 20:05 Completed Comprehensive Metabolic Panel Stat Lab 12/23/24 20:05 Completed HIV Combo Routine Lab 12/23/24 20:05 Completed Hepatitis C Ab Qual. W/ RFX Routine Lab 12/23/24 20:05 Completed Lipase Stat Lab 12/23/24 20:05 Completed UA [Urinalysis and Microscopic] Stat Lab 12/23/24 21:45 Completed Medical Decision Narrative: In summary patient is a 44-year-old male who presents to the emergency department for evaluation of right lower quadrant pain. Patient is hemodynamically stable upon arrival, afebrile. Physical exam is remarkable for tenderness to the right lower quadrant with rebound tenderness but no guarding or rigidity. He is tender over McBurney's point. He has negative CVA tenderness on the right. Bowel sounds normal active.. Differential diagnosis includes appendicitis versus kidney stone versus colitis versus constipation etc. Initial workup will be conducted with hematologic labs CT scan abdomen pelvis. Initial interventions include crystalloid bolus Tylenol Zofran Toradol. Initial workup reviewed by me and his hematologic labs are nonactionable including normal white count with no left shift liver enzymes and my informal interpretation of his CT scan abdomen pelvis shows enteritis without evidence of perforation or abscess.. Upon repeat evaluation patient reported improvement in his pain after initial intervention and is tolerating p.o. intake.. Given this patient is appropriate for discharge with referral to gastroenterology for further workup, prescription for Zofran sent to his pharmacy and follow-up with his PCP within 48 hours for recheck. I was consulted by the MARIA R, and we discussed the complexity of the problems being addressed. I approved the treatment and management plan for this patient's care in the Emergency Department, thus performing a substantive portion of the medical decision making. Mervin Dos Santos MD Critical Care <LIONEL Bello - Last Filed: 12/23/24 22:49> Critical Care Time Critical Care Time: No
--- NOTE | 2024-12-23 20:51 | CT_ITS ---
PROCEDURE INFORMATION: Exam: CT Abdomen And Pelvis With Contrast Exam date and time: 12/23/2024 9:16 PM Age: 44 years old Clinical indication: Abdominal pain; Additional info: Right lower quadrant abdominal pain TECHNIQUE: Imaging protocol: Computed tomography of the abdomen and pelvis with contrast. Radiation optimization: All CT scans at this facility use at least one of these dose optimization techniques: automated exposure control; mA and/or kV adjustment per patient size (includes targeted exams where dose is matched to clinical indication); or iterative reconstruction. Contrast material: ISOVUE; Contrast volume: 75 ml; Contrast route: IV; COMPARISON: CT ABDOMEN PELVIS WO/W CON 12/20/2022 9:28 AM FINDINGS: Liver: Mild fatty changes of the liver. No mass. Gallbladder and biliary ducts: No calcified stones. No ductal dilation. Pancreas: No ductal dilation. Spleen: No splenomegaly. There is a small splenule adjacent to the spleen. Adrenal glands: No mass. Kidneys and ureters: No hydronephrosis. Stomach and bowel: The stomach is mildly dilated with food particles and gas. There is thickening of the duodenal oswald. There is diffuse thickening of the proximal small bowel oswald. There is thickening and enhancement of the distal small bowel oswald. There is scattered fluid within the small bowel, with mild distension but no significant obstruction or transition. Particularly, there is thickening and enhancement of the oswald of the distal ileum, concerning for ileitis. Scattered fecal matter and gas within the colon without obstruction. Appendix: No evidence of appendicitis. Intraperitoneal space: No free air. No significant fluid collection. Vasculature: No abdominal aortic aneurysm. Lymph nodes: There are small inguinal lymph nodes bilaterally. No enlarged lymph nodes. Urinary bladder: Mild thickening of the urinary bladder oswald. Please correlate with urine analysis. Reproductive: The prostate is mildly enlarged, measuring approximately 4.1 x 3.8 cm. Bones/joints: Mild degenerative changes of the spine. No acute fracture. Soft tissues: Unremarkable. IMPRESSION: 1. Scattered thickening and enhancement of the small bowel oswald, concerning for duodenitis and enteritis. Clinical correlation and attention on follow-up is recommended. 2. Mild thickening of the urinary bladder wall. Please correlate with urine analysis.
[2024-12-23 20:56] LABS: Albumin Level 4.4 g/dl (3.5-5.0); Chloride 101 mmol/L (98-107); Sodium 137 mmol/L (136-145)
[2024-12-23 20:59] LABS: Alanine Aminotransferase 37 U/L (12-78); Albumin/Globulin Ratio 1.4 (1.1-1.8); Alkaline Phosphatase 143 U/L (38-126); Aspartate Amino Transferase 49 U/L (17-59); Bilirubin,Total 0.4 mg/dl (0.2-1.3); Blood Urea Nitrogen 13 mg/dl (9-20); Carbon Dioxide 31 mmol/L (22.0-30.0); Creatinine Clearance Estimated 77 mL/min (50-200); Estimated Glomerular Filt Rate 81 ml/min (>60); GFR (African American) 98 ML/MIN (>60); Globulin 3.1 g/dL (1.3-3.2); Lipase 78 U/L (23-300); Total Protein,Serum 7.5 g/dl (6.3-8.2)
[2024-12-23 21:00] LABS: Calcium 8.8 mg/dl (8.4-10.2); Glucose 92 mg/dl (74-100)
[2024-12-23] MEDS: HYDROMORPHONE 2MG/ML SYRINGE 0.5 MG IV (21:00)
[2024-12-23] MEDS: ACETAMINOPHEN 1,000MG/100ML VIAL 1000 MG IV (21:00)
[2024-12-23] MEDS: ONDANSETRON 4MG/2ML VIAL 4 MG IV (21:01)
[2024-12-23 21:12] LABS: Basophils % 0.7 % (0.1-2.0); Eosinophils # 0.2 K/mm3 (0.0-0.4); Hematocrit 40.6 % (42.0-52.0); Hemoglobin 13.6 g/dL (14.1-18.0); Lymphocytes # 1.5 K/mm3 (0.7-4.5); Lymphocytes % 26.3 % (10-50); Mean Corpuscular HGB Conc 33.5 g/dL (31.8-35.4); Mean Corpuscular Hemoglobin 29.1 pg (27.0-31.2); Mean Corpuscular Volume 86.9 fl (80-94); Mean Platelet Volume 11.8 fl (7.4-10.4); Monocytes # 0.5 K/mm3 (0.1-1.0); Monocytes % 8.2 % (1.7-9.3); Neutrophils # 3.4 K/mm3 (1.8-7.8); Neutrophils % 61.6 % (37.0-80.0); Platelet Count 181 K/mm3 (142-424); Red Blood Count 4.67 M/mm3 (4.60-6.20); Red Cell Distribution Width 12.5 % (11.5-17.5); White Blood Count 5.6 K/mm3 (4.8-10.8)
[2024-12-23] MEDS: SODIUM CHLORIDE 0.9% 10ML SYR (RAD ONLY) 10 ML IV (21:18)
[2024-12-23] MEDS: IOPAMIDOL-370 (76%);100ML BOTTLE 75 ML IV (21:18)
[2024-12-23 21:50] LABS: Microscopic, Urine URINE MICROSCOPIC (MICROSCOPIC)
[2024-12-23 21:54] LABS: HIV Combo NEGATIVE (Negative)
[2024-12-23 22:01] LABS: Hepatitis C Ab Qual. W/ RFX NEGATIVE (Negative)
[2024-12-23 22:13] LABS: Appearance,Urine CLEAR (Clear); Bilirubin,Urine Negative (Negative); Blood, Urine Negative (Negative); Color,Urine YELLOW (Yellow); Glucose,Urine (UA) Negative (Negative); Ketones,Urine Negative (Negative); Leukocyte Esterase,Urine Negative (Negative); Nitrate,Urine Negative (Negative); Protein,Urine Negative (Negative); Specific Gravity, Urine 1.015 (1.005-1.030); Urobilinogen,Urine 0.2 EU/dl (0.2)
[2024-12-23 22:41] LABS: Amorphous Sediment,Urine 1+ /lpf; Bacteria,Urine 1+ /lpf; Squamous Epithelial Cell,Urine Occasional #/hpf (0-5); WBC,Urine Occasional #/hpf (0-3)
== END 2024-12-23 23:06 | disposition home or self-care (01) ==
PROVIDERS: Physician Assistant; Emergency Provider Emergency Medicine; PCP Internal Medicine Adolescent Medicine
DX: K52.9 Noninfective gastroenteritis and colitis, unspecified (principal); R10.11 Right upper quadrant pain; R10.31 Right lower quadrant pain
CPT/HCPCS: 74177; 80053; 81001; 83690; 85025; 86803; 87389; 96374; 96375; 99285; J0131; J1171; J2405; Q9967